=== PATIENT | female | born 2000 | race Caucasian/White ===

== ENCOUNTER 2024-10-20 10:36 | Outpatient (OUT) | payer OTHER, SELFPAY ==
--- OUTSIDE RECORDS SUMMARY | 2024-10-08 15:00 | XMS_ITS | Encounter Summary ---
Author Organization [employer] Sys tem Address [facility] [id number] [address] [place] [address] Care Team Providers Care Electronic Console Display Operator Name Role Phone Emily Martinez APRN-DIVISION LEADER Primary Care Provide r Reason for Visit * Reason Comments Routine Visit +fm, no cramping bleeding or fluid leakingwould like cervical check today Encounter Details Date Type Department Care Team (Late st Contact Info) Description 10/08/2024 3:00 PM EDT Routine [facility] [address] [facility] [facility] [address] [place] [address] Pati Ward MD [address] [facility], [facility] [address] [place] [address] GA: 39w1d Social History Tobacco Use Types Packs/Day Years Used Date Smoking Tobacco: Never Smokeless Tobacco: Never Alcohol Use Standard Drinks/Week Comments Not Currently 0 (1 standard drink = 0.6 oz pur e alcohol) Social Connection and Isolat ion Panel [NHANES] Answer Date Recorded In a typical week, how many times do you talk on the phone with family, friends, or neighbors? More than three times a week 01/28/2021 How often do you get togethe r with friends or relatives? More than three times a week 01/28/2021 How often do you attend chur ch or catholic services? More than 4 times per year 01/28/2021 Do you belong to any clubs o r organizations such as jehovah's witness groups, unions, fraternal or athletic groups, or school groups? Yes 01/28/2021 How often do you attend meet ings of the clubs or organizations you belong to? 1 to 4 times per year 01/28/2021 Are you , , di vorced, , never , or living with a partner? Never 01/28/2021 AUDIT-C Answer Date Recorded Q1: How often do you have a drink containing alc ohol? 2-4 times a month 01/28/2021 Q2: How many drinks containi ng alcohol do you have on a typical day when you are drinking? 3 or 4 01/28/2021 Q3: How often do you have si x or more drinks on one occasion? Never 01/28/2021 Overall Financial Resource Strain (CARDIA) Answe r Date Recorded How hard is it for you to pa y for the very basics like food, housing, medical care, and heating? Not hard at all 03/05/2024 PHQ-2 Answer Date Recorded Total Score 0 03/05/2024 [facility] [place] of Occupat ional Health - Occupational Stress Questionnaire Answer Date Recorded Do you feel stress - tense, restless, nervous, or anxious, or unable to sleep at night because your mind is troubled all the time - these days? Only a little 01/28/2021 Exercise Vital Sign Answer Date Recorde d On average, how many days pe r week do you engage in moderate to strenuous exercise (like a brisk walk)? 2 days 01/28/2021 On average, how many minutes do you engage in exercise at this level? 30 min 01/28/2021 PRAPARE - Transportation Answer Date Re corded In the past 12 months, has l ack of transportation kept you from medical appointments or from getting medications? No 02/02 In the past 12 months, has l ack of transportation kept you from meetings, work, or from getting things needed for daily living? No 02/19/2024 Housing Instability Answer Date Recorde d Are you worried or concerned that in the next two months you may not have stable housing that you own, rent or stay in as a part of a household? No 03/05/2024 Childcare Answer Date Recorded Do problems getting child ca re make it difficult for you to work or study? No 03/05/2024 Employment Answer Date Recorded Do you need help finding a [facility] career center and/or a training program? No 01/28/2021 Hunger Screening Answer Date Recorded Within the past 12 months we worried whether our food would run out before we got money to buy more. Never True 03/08/2024 Within the past 12 months th e food we bought just didn't last and we didn't have money to get more. Never True 03/08/2024 Purpose - Life Answer Date Recorded I have a purpose and direction in my life. Agree 01/28/2021 Education Answer Date Recorded What is the highest level of school you have completed or the highest degree you have received? Some college, no degree 01/28/2021 Comments Yes Sex and Gender Information Value Date Recorded Sex Assigned at Not on file Legal Sex Female 11:56 AM EDT Gender Identity Not on file Sexual Orientation Not on file documented as of this encounter Last Filed Vital Signs Vital Sign Reading Time Taken Comments Blood Pressure 124/84 10/08/2024 3:08 PM EDT Pulse - - Temperature - - Respiratory Rate - - Oxygen Saturation - - Inhaled Oxygen Concentration - - Weight 69.6 kg (153 lb 6.4 oz) 10/08/2024 3:08 P M EDT Height - - Body Mass Index 26.74 03/02/2024 1:24 PM EDT documented in this encounter Progress Notes * Pati Ward MD - 10/08/2024 3:00 PM EDT NEIL 39w1d Good movement. No bleeding or leaking. Irregular contractions. Labor precautions given. Fetalmovement index stressed. Delivery planning: Wants IOL 10/15 if not delivered F/u 1 week - Pati Ward MD 10/08/24 3:36 PM documented in this encounter Plan of Treatment Upcoming Encounters Date Type Department Care Team (Late st Contact Info) Description 11/16/2024 1:30 PM EDT Office Visit [facility] [address] [place] [address] Emily Martinez APRN-CNP [address] [place] [address] 11/29/2024 10:15 AM EDT Visit [facility] [address] [facility] [address] [place] [address] Pati Ward MD [address] [facility], [place] [address] [place] [address] documented as of this encounter Visit Diagnoses Diagnosis Supervision of normal first , antepartum- Primary documented in this encounter Additional Health Concerns Assessment Noted Time PHQ-9 Depression Total Score: 0 03/05/20 24 1:19 PM EDT A Body Mass Index follow-up plan has been documented for the patient 04/03/2023 2:36 PM EST documented as of this encounter Care Teams Electronic Console Display Operator Relationship Specialty Start Date End Date Emily Martinez APRN-CNP [address] [place] [address] PCP - General Family Medicine 08/28/18 documented as of this encounter
--- OUTSIDE RECORDS SUMMARY | 2024-10-12 12:15 | XMS_ITS | Encounter Summary ---
Author Organization [employer] Address [facility] [id number] [address] [place] [address] Care Team Providers Care Car Designer Name Role Phone Emily Martinez [employer] Primary Care Provide r Reason for Visit * Reason Comments Routine Visit +fm, no cramping bleeding or fluid leakingwould like cervical check today Encounter Details Date Type Department Care Team (Late st Contact Info) Description 10/12/2024 12:15 PM EDT Routine [facility] [address] [facility] [address] [place] [address] Pati Ward MD [address] [facility], [facility] [address] [place] [address] GA: 39w5d Social History Tobacco Use Types Packs/Day Years [...] often do you attend chur ch or faith services? More than 4 times per year 01/28/2021 Do you belong to any clubs o r organizations such as yazidism groups, unions, fraternal or athletic groups, or [...] Answer Date Recorded Total Score 0 03/05/2024 [facility] [place] of Occupat ional Health - Occupational Stress [...] Recorded Do you need help finding a [facility] career center and/or a training program? No [...] Sign Reading Time Taken Comments Blood Pressure 120/83 10/12/2024 12:27 PM EDT Pulse - - Temperature - - Respiratory Rate - - Oxygen Saturation - - Inhaled Oxygen Concentration - - Weight 70.1 kg (154 lb 8 oz) 10/12/2024 12:27 PM EDT Height - - Body Mass Index 26.94 03/02/2024 1:24 PM EDT documented in this encounter Patient Instructions * Attachments The following attachments cannot be sent through Care Everywhere. * How to tell when labor starts ([place]) * Labor and childbirth ([place]) * Labor induction ([place]) * Your baby's movement before ([place]) documented in this encounter Progress Notes * Pati Ward MD - 10/12/2024 12:15 PM EDT NEIL 39w5d Good movement. No bleeding or leaking. Irregular contractions. Labor precautions given. Fetalmovement index stressed. SVE 1-2/70/-3/posterior/medium. Delivery planning: wants IOL 10/15 - Pati Ward MD 10/12/24 12:59 PM documented in this encounter Plan of Treatment Upcoming Encounters Date Type Department Care Team (Late st Contact Info) Description 11/16/2024 1:30 PM EDT Office Visit [facility] [address] [place] [address] Emily Martinez APRN-CNP [address] [facility] [place] [address] 11/29/2024 10:15 AM EDT Visit [facility] [address] [facility] [address] [place] [address] Pati Ward MD [address] [facility] [address] [place] [address] documented as of this encounter Visit Diagnoses Diagnosis Supervision of normal first , antepartum- Primary documented in this encounter Additional Health Concerns Assessment Noted Time PHQ-9 Depression Total Score: 0 03/05/20 24 1:19 PM EDT A Body Mass Index follow-up plan has been documented for the patient 04/03/2023 2:36 PM EST documented as of this encounter Care Teams Car Designer Relationship Specialty Start Date End Date Emily Martinez APRN-CNP [address] [facility] [place] [address] PCP - General Family Medicine 08/28/18 documented as of this encounter
--- OUTSIDE RECORDS SUMMARY | 2024-10-18 04:37 | XMS_ITS | Encounter Summary ---
Author Organization [employer] [facility] tem Address [id number] [address] [place] [address] Care Team Providers Care Accounting Lecturer Name Role Phone Emily Martinez APRN-[facility] Primary Care Provide r Reason for Referral * Misc (Routine) - Pending Review Specialty Diagnoses / Procedures Referred By Contac t Referred To Contact Procedures Discharge Follow-Up Olesya Childs MD [address] [address] Phone: tel: fax: Referral ID Status Reason Start Date Expiration Date V isits Requested Visits Authorized [id number] Pending Review 10/18/2024 10/18/2025 1 1 Reason for Visit * Reason Comments Contractions * Auth/Cert (Routine) Specialty Diagnoses / Procedures Referred By Contac t Referred To Contact Diagnoses Uterine contractions Normal labor Chelsi Farmer MD [address] [place] [address], [address] [place] [address] Phone: tel: fax: Referral ID Status Reason Start Date Expiration Date Visits Re quested Visits Authorized [id number] 1 1 Encounter Details Date Type Department Care Team (Latest Contact Info) Description 10/18/2024 4:37 AM EDT - 10/19/2024 3:30 PM EDT Hospital Encounter [facility] [address] [place] [address] Chelsi Farmer MD [address] [facility], [address] [place] [id number] Discharge Disposition: Home Social History Tobacco Use Types Packs/Day Years [...] often do you attend chur ch or jew services? More than 4 times per year 01/28/2021 Do you belong to any clubs o r organizations such as religious groups, unions, fraternal or athletic groups, or [...] Answer Date Recorded Total Score 0 03/05/2024 [facility] - Occupational Stress [...] Recorded Do you need help finding a [facility] career center and/or a training program? No 01/28/2021 Hunger Screening Answer Date Recorded Within the past 12 months we worried whether our food would run out before we got money to buy more. Never True 10/19/2024 Within the past 12 months th e food we bought just didn't last and we didn't have money to get more. Never True 10/19/2024 Purpose - Life Answer Date Recorded I have a purpose and direction in my life. Agree 01/28/2021 Education Answer Date Recorded What is the highest level of school you have completed or the highest degree you have received? Some college, no degree 01/28/2021 Comments No Sex and Gender Information Value Date Recorded Sex Assigned at Not on file Legal Sex Female 11:56 AM EDT Gender Identity Not on file Sexual Orientation Not on file documented as of this encounter Last Filed Vital Signs Vital Sign Reading Time Taken Comments Blood Pressure 116/73 10/19/2024 2:21 PM EDT Pulse 72 10/19/2024 2:21 PM EDT Temperature 36.4 C (97.5 F) 10/19/2024 2:21 PM EDT Respiratory Rate 18 10/19/2024 2:21 PM EDT Oxygen Saturation 99% 10/18/2024 1:45 PM EDT Inhaled Oxygen Concentration - - Weight 69.9 kg (154 lb) 10/18/2024 4:48 AM EDT Height 162.6 cm (5' 4 ) 10/18/2024 4:48 AM EDT Body Mass Index 26.43 10/18/2024 4:48 AM EDT documented in this encounter Functional Status documented as of this encounter Discharge Summaries * Tatiana Nieves, DO - 10/19/2024 7:10 AM EDT Discharge Summary Reason for admission: Spontaneous labor Principal diagnosis: Intrauterine at 40w4d Secondary diagnosis: RH negative Procedures: Hospital course: Rc Rodriguez is a 24 y.o. who presented at 40w4d with Spontaneous labor. The patient received her epidural. Amniotomy performed. The patient progressed to complete and began pushing. She delivered a viable female fetus weighing 3080 grams with apgars of 8 and 9 at one and five minutes respectively via . She underwent an uncomplicated course and was discharged home on day number 1 when she was tolerating a regular diet, ambulating without difficulty, passing flatus, voiding spontaneously, and pain was controlled using oral pain medications. Laboratory Results: Lab Results Component Value Date WBC 6.3 07/08/2024 HGB 13.4 10/18/2024 HCT 40.0 10/18/2024 MCV 96 07/08/2024 PLT 199 07/08/2024 Lab Results Component Value Date GLU 79 03/14/2023 CALCIUM 9.1 03/14/2023 K 4.0 03/14/2023 CO2 25 03/14/2023 BUN 18 03/14/2023 CREATININE 0.71 03/14/2023 Care treatment provided: 1. Management of labour. 2. Pain management. 3. Stool softeners. Prescriptions given at discharge: Motrin PO 800mg q8h PRN cramping or mild pain, Tylenol PO 1000mg q8h PRN, Colace 100mg BID PRN constipation, and Tylenol 1000mg q8h prn Condition of patient at discharge: Stable, good. Special instructions to the patient family: 1. Pelvic rest for 6 weeks. 2. Please call if fever greater than 100.4, chills, malodorous vaginal discharge, or other signs ofinfection. 3. Please call if chest pain, shortness of breath, asymmetrical leg swelling or calf tenderness develops. 4. Please call if bleeding through more than 1 pad per hour. Recommendations for follow-up care: 1. Please follow up with primary OBGYN in 6 weeks for routine visit. Disposition: home Tatiana Nieves DO [employer] Resident, PGY-1 Cosigned by Ana Garcia MD at 10/19/2024 10:51 AM EDT Associated attestation - Ana Garcia MD - 10/19/2024 10:51 AM EDT I, personally, saw the patient and performed the critical and sorto portions of the history and exam.I reviewed the resident's note. I discussed the case management with the resident and agree with the findings and plan as documented by the resident documented in this encounter Discharge Instructions * Discharge Instructions* Alisha Flynn RN - 10/19/2024 11:07 AM EDT Discharge Instructions Vaginal Bleeding Vaginal drainage, lochia , will last 2-3 weeks after your baby was born Use the varinder bottle filled with warm water each time you use the bathroom, pat dry. Continue this until your drainage stops. Always wipe from front to back after you urinate or have a bowel movement Change your sanitary pad every 2-4 hours Notify your doctor/CNM if you experience any of the following: Clots larger than a plum If you are saturating a varinder pad greater than one pad an hour Any foul smelling vaginal drainage Abdominal Cramping Cramping gets stronger with each baby. You may try a heating pad Bathing/Showering Take a shower each day unless you were told not to To help with episiotomy discomfort you may sit in a clean tub of warm water Stitches in your perineum will dissolve over 6 weeks, for comfort you may: Use a sitz bath Varinder bottle Dermoplast (use each time after varinder care) Tucks (use each time after varinder care) Tucks and Dermoplast spray may also help with hemorrhoid discomfort (use each time after varinder care) Sexual [place] No tampons, douching, or sexual intercourse until after you see your doctor You may need to use a water-soluble lubricant such as KY Jelly for dryness Talk to your doctor/CNM regarding control and which method would be best for you Talk to your doctor/CNM regarding the use of a long acting, but reversible, control method It is recommended to space pregnancies apart by at least 18 months, this is for the safety of future outcomes Notify your doctor if you have: Any vaginal burning or itching Any burning or pain when urinating, or inability to urinate A temperature greater than 100.4 degrees Fahrenheit or severe chills Pain in calf or leg Nausea or vomiting, dizziness or fainting If you have not had a bowel movement in 5 days Diet: Drink 8-12 glasses of water each day Make sure you eat a balanced diet, especially high in fiber (whole grains, raw vegetables, etc.) If drink 8 oz. of liquid every time you nurse your baby Continue to take your vitamins as prescribed by your doctor Abdominal Incision / Tubal Ligation Care: Wash your incision with soap and water and be sure to rinse and dry well If you had antoine they will be removed by your doctor/CNM If you had sutures they will dissolve on their own For ease of movement hold a pillow against the incision: When you get up from a lying or sitting position When you laugh or cough Notify your doctor/CNM for any of the following: Redness Drainage Open areas around your incision Breast Care: To help with discomfort: Feed your baby frequently to avoid engorgement Apply warm compresses to breast before feeding Apply cold compresses to breast after feeding Wear a supportive nursing bra 24 hours a day Do not put soap on your nipples Allow nipples to air dry after feeding Bottle feeding: To help with discomfort: Use cold compresses Wear a tight fitting bra 24 hours a day Notify your doctor/CNM: For swelling, redness, or tenderness in one area of your breast Blues / Depression: Blues : Usually occurs within 3-5 days after delivery Normally goes away on its own Depression: Can also occur within days of delivery, or within a year Warning Signs: Increased crying for no obvious reason Lack of patience Being irritable Being restless Not being able to sleep Not wanting to eat Anxiety Notify your doctor/CNM: If you experience any of the warning signs If you are having any violent thoughts If you are having thoughts of harming yourself or your baby Sibling / Family Adjustment: Each family member will take different amounts of time to adjust to the new baby Be patient and offer lots of love and comfort Offer some individual attention to other children Exercise / Activity: Get plenty of rest Take catnaps while baby is sleeping during the day No heavy cleaning or other housework for the first couple of weeks Lift nothing heavier than your baby for 2 weeks No driving for one week Do not drive while taking narcotics You may start walking and stretching in 2 weeks No strenuous exercises like jogging, aerobics, etc. until after you have seen your doctor/CNM You may start Kegel exercises now * Attachments The following attachments cannot be sent through Care Everywhere. * Normal Bleeding After Having a Baby (Haitian) * Taking Care of Yourself After You Have a Baby (Haitian) documented in this encounter Medications at Time of Discharge acetaminophen (TYLENOL EXTRA STRENGTH) 500 mg tablet Take 2 tablets (1,000 mg total) by mouth every 8 (eight) hours as needed for pain. 30 tablet 10/18/2024 docusate sodium (COLACE) 100 mg capsule Take 1 capsule (100 mg total) by mouth in the morning and 1 capsule (100 mg total) before bedtime. 10 capsule 10/19/2024 EPINEPHrine (EPIPEN 2-SHERWIN) 0.3 mg/0.3 mL auto-injectorInd ications:Allergi c reaction to bee sting Inject 0.3 mL (0.3 mg total) into the appropriate muscle as needed (when stung by bee). 4 each 1 08/28/2023 ibuprofen (MOTRIN) 800 mg tablet Take 1 tablet (800 mg total) by mouth every 8 (eight) hours as needed (cramping). 30 tablet 10/18/2024 omeprazole (PriLOSEC) 20 mg capsule Take 1 capsule (20 mg total) by mouth as needed. vit,[id number]- folic 29 mg iron- 1 mg tablet Take 1 tablet by mouth in the morning. 90 tablet 11 01/30/2024 documented as of this encounter Progress Notes * Tatiana Nieves, DO - 10/19/2024 6:08 AM EDT OBGYN Daily Progress Note Subjective [place] Yuli Rodriguez is a 24 y.o. PPD#1 at 40w4d. Patient reports doing well. Pain is controlled with oral medications. Reports cramping. Lochia minimal with small clots. She is voiding.She has had flatus, and has not had a BM. She is ambulating without difficulty. She is . Baby doing well. Denies fever, chills, nausea, vomiting, headache, changes in vision, or RUQ pain. Objective: Temp: [36.5 ??C (97.7 ??F)-36.8 ??C (98.2 ??F)] 36.7 ??C (98.1 ??F) Pulse: [60-165] 70 Resp: [15-18] 18 Blood Pressure : (88-140)/(44-88) 120/77 SpO2: [99 %-100 %] 99 % O2 Device: None (Room air) Vitals: 10/18/24 1345 10/18/24 1500 10/18/24201910/19/24 0159 BP: (!) 99/44 136/76 117/81 120/77 Pulse: 63 69 78 70 Resp: 16 18 18 18 Temp: 36.5 ??C (97.7 ??F) 36.6 ??C (97.9 ??F) 36.7 ??C (98.1 ??F) TempSrc: Oral Oral Oral SpO2: 99% Weight: Height: Rubella: Lab Results Component Value Date RUBELLAIMMU 1.5 03/24/2024 Physical Exam: General: alert, well appearing, in no apparent distress Abd: soft and nontender Ext: no redness or tenderness in the calves or thighs, no edema Assessment/Plan: Rc Rodriguez is a 24 y.o. PPD#1 at 40w4d. Sustained small first degree perineal laceration, repaired. Overall doing well. Routine PP care: Encourage ambulation and incentive spirometry. O negative, Rubella immune: Yes, sp Tdap: Yes - Baby screened Rh negative; no Rhogam administered Hgb 13.2 10/18: Continue vitamin PP contraception: plans to follow up with family medicine doctor at appointment this week and primary [facility] for counseling at appointment. Anticipate home today. Shannon Phillips, MS4 Resident Attestation I have seen and evaluated the patient, and have also reviewed the documentation above. I have repeated and performed the sorto portions of the physical exam and concur with the student's findings. I agree with the plan as noted above with any changes made as necessary. Tatiana Nieves DO [employer] Resident PGY-1 10/19/24 7:10 AM Cosigned by Ana Garcia MD at 10/19/2024 10:51 AM EDT Associated attestation - Ana Garcia MD - 10/19/2024 10:51 AM EDT I, personally, saw the patient and performed the critical and sorto portions of the history and exam.I reviewed the resident's note. I discussed the case management with the resident and agree with the findings and plan as documented by the resident documented in this encounter H&P Notes * ARDEN Hutton - 10/18/2024 5:01 AM EDT Images from the original note were not included. [facility] Obstetrics Emergency Department Chief Complaint: Chief Complaint Patient presents with Contractions SUBJECTIVE Care by: Dr Ward/ NELSON HPI: 23 y.o. at 40w4d presents to the OB Emergency Center with complaints of labor and possible SROM. Pt states she woke with contractions near 2am & they are becoming progressively stronger and closer. Near 3a she felt watery discharge running down her leg & she continues to experience this She reports positive movement. She denies vaginal bleeding. Her history is complicated by: - Rh neg: chromosome screen indicates fetus Rh negative, no rhogam given Review of Systems: General: see HPI Head: No headache or visual changes Cardio: Denies chest pain. Respiratory: Denies shortness of breath GI: No nausea/vomiting : Denies urinary symptoms. Allergies Allergies Allergen Reactions Bee Venom Protein (Honey Bee) Anaphylaxis Hornet Venom Anaphylaxis Venom-Wasp Anaphylaxis Penicillins Nausea Home Medications Medications Prior to Admission Medication Sig Dispense Refill Last Dose/Taking omeprazole (PriLOSEC) 20 mg capsule Take 1 capsule (20 mg total) by mouth as needed. 10/17/2024 vit,[id number] 29 mg iron- 1 mg tablet Take 1 tablet by mouth in the morning. 90 tablet 11 10/17/2024 EPINEPHrine (EPIPEN 2-SHERWIN) 0.3 mg/0.3 mL auto-injector Inject 0.3 mL (0.3 mg total) into the appropriate muscle as needed (when stung by bee). 4 each 1 OB History OB History Para Term AB Living 1 0 0 0 0 0 SAB IAB Ectopic Multiple Live Births 0 0 0 0 0 # Outcome Date GA Lbr Rene/2nd Weight Sex Type Anes PTL Lv 1 Current Travel History Travel Screening Question Response Have you been in contact with someone who was sick? No / Unsure Do you have any of the following new or worsening symptoms? None of these Have you traveled internationally or domestically in the last month? 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 Depression 08/28/2018 situational no issues since [facility] GERD (gastroesophageal reflux disease) Surgical History Past Surgical History: Procedure Laterality Date WISDOM TOOTH EXTRACTION Family History Family History Problem Relation Age of Onset Pulmonary fibrosis Paternal Grandfather Hypothyroidism Paternal Grandfather No Known Problems Paternal Grandmother Diabetes Maternal Grandmother DM I Pulmonary fibrosis Maternal Grandmother Diabetes Maternal Grandfather No Known Problems Father Diabetes Mother DM I Polycystic ovary syndrome Mother Miscarriages / Stillbirths Mother SAB x2 Polycystic ovary syndrome Sister Diabetes Maternal Aunt Social History Social History Tobacco Use Smoking status: Never Smokeless tobacco: Never Vaping Use Vaping status: Never Used Substance Use Topics Alcohol use: Not Currently Comment: Drug use: Never OBJECTIVE Vital signs in last 24 hours: Vitals: 10/18/24 0446 BP: 114/79 Pulse: 99 Resp: 18 Temp: 36.4 ??C (97.5 ??F) RECENT LABS IN LAST 24 HOURS No results found for this or any previous visit (from the past 24 hours). Lab Review ABO/Rh: Lab Results Component Value Date ABOINTEP O 03/24/2024 ABOINTEP O 03/24/2024 RHINTEP Negative 03/24/2024 RHINTEP Negative 03/24/2024 Group B Strep: Lab Results Component Value Date CULTURE 09/16/2024 NEGATIVE FOR GROUP B STREPTOCOCCUS BY NUCLEIC ACID AMPLIFICATION Rubella: Lab Results Component Value Date RUBELLAIMMU 1.5 03/24/2024 Hepatitis B Surface Antigen: Lab Results Component Value Date HEPBSAG Negative 03/24/2024 HIV: Lab Results Component Value Date HIV4 Non-Reactive 03/24/2024 RPR (VDRL): Lab Results Component Value Date SYPHILISTOT <0.2 07/08/2024 One hour GTT: Lab Results Component Value Date LABGLUC 139 07/08/2024 Three Hour GTT: Lab Results Component Value Date GLUF 77 07/10/2024 DVDYAHT8OY 128 07/10/2024 CBLQIYW1IC 78 07/10/2024 BMNDHXG8OM 60 (L) 07/10/2024 Physical Exam Consitutional: well-appearing; NAD Psychological: Alert and oriented to person, place and time Neurological: No deficits Head/Neck: No masses/adenopathy, non-tender Skin: Normal temp and turgor, dry, intact Respiratory: Respirations even and non labored, lungs CTA Cardiovascular: Regular rate and rhythm Abdomen: Soft, gravid, non-tender to palpation Back: No CVA tenderness, no back pain Musculoskeletal: ROM x 4, normal gait Extremities: No LE edema, non-tender SSE: no pooling of fluid seen, Nitrizine test is negative PELVIC EXAM: Presentation: Cervix: Dilation: Dilation: 5.5 Effacement: Effacement (%): 100 Station: Station: -1 Position: FHR: 130 baseline, moderate variability, positive accels, Absent decels Uterine Activity: regular, every 3-5 minutes per toco ASSESSMENT & PLAN 1. 23 y.o., at 40w4d - Cat 1 FHT - Reactive NST greater than 20 minutes 2. No leakage of amniotic fluid - no pooling - negative ntrazine - BBOW visualized 3. Labor - SVE 5.5/ 100/ -1 soft vertex BBOW Plan - Discussed with Dr. Farmer- pt presenting with contractions, SVE of 5.5/ 100/-1 vertex, cat 1 tracing - Admit, routine labor orders - GBS neg - plans epidural - gender surprise. ARDEN HUTTON APRN-CNM 10/18/24 0531 documented in this encounter Nursing Notes * Alisha Flynn RN - 10/19/2024 3:20 PM EDT Patient discharged to home with infant. * Malissa Rodarte RN - 10/19/2024 2:42 PM EDT AVS printed, discussed, signed, and copy given to patient. Patient verbalizes understanding of discharge instructions. Patient has follow up appointment November 29, 2024 @ 10:15 AM. No further questionsat this time. * Alisha Flynn RN - 10/18/2024 3:15 PM EDT Patient admitted to unit room 427 with . Call light and baby emergency light placed within reach. Contents of yellow folder discussed. Encouraged to latch infant q2-3h. documented in this encounter Miscellaneous Notes * Plan of Care - Pao Jay RN - 10/19/2024 11:34 AM EDT Problem: Goal: Effective breast feeding established Description: Mother is able to demonstrate proper positioning and alignment to promote adequate latching and . INTERVENTIONS 1. Teach breast feeding/assist with breast feeding as applicable 2. Provide pumping equipment/supplies in room 3. Encourage rooming in and breast feeding on demand 4. Encourage oral fluids 5. Encourage skin to skin contact - Breast feeding Outcome: Progressing Note: Evaluation of progress towards goal: with comfortable latch Additional Comments: * Note - Pao Jay RN - 10/19/2024 10:20 AM EDT Congratulations on your New Baby handout given with warmline contact information, outpatient office visits and video resources. Baby News Booklet referenced with attention to chapter on . Discussed typical feeding patterns, frequency of feeds and feeding cues. Goal is to feed 8-12 times in 24 hours and skin to skin encouraged. Advised to keep track of baby's wet and dirtydiapers. How to tell baby is getting enough handout reviewed. Hand expression reviewed. Can spoon feed hand expressed colostrum if baby has a feed that she is too sleepy for and did not feed well. Verbalized understanding. Patient reports that baby is improving with . Reports yesterday baby was sleepy but this morning has started feeding better. Reports the latch feels comfortable and notes hearing swallows. Encouraged pt to continue offering breast every 1-3 hours or whenever showing feeding cues. Baby should feed at least 8-12x/24 hrs for at least 10-15 minutes with active suckling and swallowing. Advised pt to continue tracking feedings as well as wet/dirty diapers noting stool color change to ensure adequate output. Planning for discharge home after 24 hrs. Discussed feeding plan if baby does not continue doing well at the breast, is not having an appropriate amount of wet/dirty diapers or losing too much weight. Reviewed feeding plan with the pt. Discussed that it is common for babies to need time to learn the skill of . Encouraged to follow the feeding plan below to ensure baby is getting enough milk and stimulate/protect mother's milk supply. Written feeding plan provided. Patient verbally understands teaching. If your baby is greater than 24 hours old and is not going well: Offer the breast every 1-3 hours. If baby does not take a full feed at breast, move to step 2. Supplement baby with pumped milk or formula using paced bottle feeding (see below for supplement amount) Pump for 15-20 minutes with double electric breast pump Baby's Age (Hours) Average Intake (Per Feed) <24 2-10 mls 24-48 5-15 mls 48-72 15-30 mls 72-96 30-60 mls Patient educated that this feeding plan is meant to be short term: it is a bridge to protect milk supply and feed the baby while they get bigger, stronger, and more effective at . Encouraged to make an outpatient appointment after discharge with by calling [phone]. Pt does have a Spectra breast pump for home. Measured for flange size. Recommend 22mm flange size to start. Flange fit should be comfortable. Flange Fit A flange fits correctly when: your nipple is centered in the tube no parts of your nipple rub against the sides little or no areola is pulled in when the pump is turned on On the other hand, a flange is not fitting properly when: you experience nipple pain during or after the pumping session you notice your nipple is becoming discolored, chapped, or otherwise injured In addition to breast and nipple pain, using the wrong sized pump flange can negatively impact the amount of milk you are able to get out of your breast. A flange that fits too tightly will cause the breast to be constricted in ways that can lead to clogged/blogged milk ducts. (When ducts are clogged, they don???t release milk and new milk isn???t formed as quickly.) On the other hand, a flange that fits too loosely won???t provide adequate suction. This can also lead to milk being left in the breast and lower milk production in the future. Pain and infection candevelop from this as well. All questions answered at this time. Encouraged pt to reach out to with any questions or concerns. DEEP LATCH SUGGESTIONS: -position baby at level of the breast, use lots of pillows for support -position baby belly to belly , with ear in line with shoulder and hip -use one hand to support baby at the shoulders to help with head control and keep airway straight and open -point nipple toward nose/roof of baby's mouth -wait for baby to open wide, bring on chin-first for an asymmetrical latch : scoop as much of bottom breast tissue/areola into baby's mouth first, then bring baby up and over to complete a deep latch *if latch becomes uncomfortable or appears shallow, break seal with finger to take baby off, try tolatch again * Plan of Care - Alisha Flynn RN - 10/19/2024 8:19 AM EDT Problem: Pain Goal: Patient goal is pain score less than 4, able to rest, and participant in treatment plan as appropriate Description: INTERVENTIONS: 1. Encourage patient or legal inside technical sales representative to report early pain and ask for pain medicine when needed 2. Assess pain using appropriate pain scale and include the scale used when documenting 3. Administer analgesics based on type and severity of pain and evaluate response within appropriate time frame 4. Implement non-pharmacological measures as appropriate and evaluate response 5. Consider cultural and social influences on pain and pain management 6. Notify LIP if interventions ineffective or patient reports new pain 7. Monitor vital signs including pulse ox, end-tidal CO2 based on pain intervention 8. Reassess pain per policy 9. Teach patient or legal inside technical sales representative interventions for comforting Outcome: Progressing Note: Evaluation of progress towards goal: Patient displays adequate comfort level. PO pain medication given as needed per orders. Problem: Safety Goal: Patient will be injury free during hospitalization Description: INTERVENTIONS: 1. Assess patient's risk for falls and implement fall prevention plan of care per policy 2. Provide and maintain a safe environment 3. Proper use of double Identifiers 4. Medication administration using the 5 rights 5. Hand hygiene 6. Specimens are labeled at the bedside 7. Instruct patient/ patient inside technical sales representative about use of safety devices 8. Include patient/ patient inside technical sales representative in decisions related to safety Outcome: Progressing Note: Evaluation of progress towards goal: Patient has remained free from injury and falls. Call light within reach. Problem: Infection Goal: Absence of infection during hospitalization Description: INTERVENTIONS 1. Assess and monitor for signs and symptoms of infection. 2. Monitor lab/diagnostic results. 3. Monitor all insertion sites i.e., indwelling lines, tubes and drains. 4. Monitor endotracheal (as able) and nasal secretions for changes in amount and color. 5. Administer medications as ordered. 6. Instruct and encourage patient and family to use good hand hygiene technique. 7. Identify and instruct patient/patient inside technical sales representative in use of appropriate isolation precautionsfor identified infection/symptoms. 8. Provide and discuss with patient/patient inside technical sales representative on educational MDRO sheet. 9. Encourage and monitor nutritional status daily and consult global commodity manager if indicated. 10. Implement neutropenic guidelines as needed. Outcome: Progressing Note: Evaluation of progress towards goal: no s/s of infection present Problem: Knowledge Deficit Goal: Patient/patient inside technical sales representative demonstrates understanding of disease process, treatment plan,medications, and discharge instructions Description: INTERVENTIONS 1. Complete learning assessment and assess knowledge base 2. Provide teaching at level of understanding 3. Provide teaching via preferred learning method(s) Outcome: Progressing Note: Evaluation of progress towards goal: Patient demonstrates understanding of routine varinder and care. Will provide education as needed Problem: Discharge Planning Goal: Discharge to post-acute care, other facility, or home with appropriate resources Description: Patient's goal is: INTERVENTIONS 1. Conduct assessment to determine patient/family and health care team treatment goals, and need for post-acute services based on payer coverage, community resources, and patient preferences, and barriers to discharge 2. Coordinate with Social work, Care Navigation, and Utilization Review to arrange appropriate level of services according to patient's needs based on patient preference and payer coverage in collaboration with the physician and health care team 3. Address psychosocial, clinical, and financial barriers to discharge as identified in assessment in conjunction with the patient/family and health care team 4. Consult appropriate ancillary services (i.e.. PT/OT/ST, etc) as needed 5. Communicate with and update the patient/family, physician, and health care team regarding progress on the discharge plan 6. Identify discharge learning needs (meds, wound care, etc). 7. Arrange for needed discharge transportation as appropriate Outcome: Progressing Note: Evaluation of progress towards goal: Discharge needs are being identified. Problem: Moderate - High Risk Fall Score Description: Glover Fall Score of =/> 25 or indicated by [facility] Assessment Goal: Patient should be free from fall Description: Interventions: 1. [place] to environment 2. Hourly rounds addressing the 4 P's (Pain, Positioning, Possessions, Potty) 3. Clear area of hazards (spills, clutter, electrical cords, unnecessary equipment) 4. Place equipment (bed & TV controls, call light, phone, urinal) within reach 5. Encourage patient to wear glasses and hearing aides as appropriate 6. Maintain bed in lowest position 7. Lock wheels on bed/wheelchair 8. Provide adequate lighting, including night light 9. Assess need for additional bedding, food/fluids, pain med's prior to sleep/routinely 10. Provide gripper slippers or personal non-skid footwear 11. Teach patient and patient inside technical sales representative to maintain environment for safety and engage in all aspects of fall prevention program 12. Remind patient to call for help before getting out of bed 13. Initiate bed/chair/exit alarms supportive devices as appropriate, (chair wedge, no-skid floor mat, raised edge mattress, hip protectors) 14. Locate patient bed assignment for optimal visualization 15. Evaluate and identify Safe Patient Handling Equipment needs 16. Provide supervision when out of bed or chair 17. Utilize gait belt as needed to assist with ambulation 18. Place adaptive equipment (cane, walker) within reach 19. Request patient inside technical sales representative bring adaptive equipment/mobility aids from home or obtain and provide as needed 20. Consult pharmacy regarding effects of med's affecting mobility, cognition, and alternatives 21. Obtain physician order for PT if risk factors associated with mobility are present 22. Obtain physician order for OT as appropriate 23. Utilize diversional activities 24. Educate patient and patient inside technical sales representative how to maintain a safe environment during visitationtimes (notify nurse prior to leaving bedside) 25. Consider appropriateness of medical or non-biomedical instrument technician 26. Set up voiding schedule as appropriate (every 2 hours) Outcome: Progressing Note: Evaluation of progress towards goal: safety maintained Problem: Vaginal Delivery - Recovery and Goal: Empties bladder Description: Assess bladder and bladder function. INTERVENTION 1. Encourage patient to void Outcome: Progressing Note: Evaluation of progress towards goal: void checks completed Goal: Patient vitals and physical assessment findings are stable following delivery Description: Edema will be absent or minimal INTERVENTIONS 1. Vital signs - vaginal delivery - recovery & 2. Assess fundus - vaginal delivery - recovery and 3. Do lochia check - vaginal delivery - recovery and Outcome: Progressing Note: Evaluation of progress towards goal: vitals and assessment wnl at this time Goal: Perineum intact without discharge or hematoma Description: INTERVENTIONS 1. Ice to perineum 2. Provide pericare 3. Sitz bath PRN Outcome: Progressing Note: Evaluation of progress towards goal: perineum CDI Goal: Ambulates independently Description: INTERVENTION 1. Ambulate Outcome: Progressing Note: Evaluation of progress towards goal: ambulates without difficulty Problem: Goal: Breasts are soft with nipple integrity intact Description: INTERVENTIONS 1. Do breast/nipple assessment 2. Ensure proper latch 3. Assess and manage engorgement Outcome: Progressing Note: Evaluation of progress towards goal: nipple integrity wnl Goal: Effective breast feeding established Description: Mother is able to demonstrate proper infant positioning and alignment to promote adequate latching and . INTERVENTIONS 1. Teach breast feeding/assist with breast feeding as applicable 2. Provide pumping equipment/supplies in room 3. Encourage rooming in and breast feeding on demand 4. Encourage oral fluids 5. Encourage skin to skin contact - Breast feeding Outcome: Progressing Note: Evaluation of progress towards goal: encouraged to latch q2-3h Additional Comments: * Plan of Care - Isabel Mcdonald RN - 10/18/2024 11:25 PM EDT Problem: Pain Goal: Patient goal is pain score less than 4, able to rest, and participant in treatment plan as appropriate Description: INTERVENTIONS: 1. Encourage patient or legal inside technical sales representative to report early pain and ask for pain medicine when needed 2. Assess pain using appropriate pain scale and include the scale used when documenting 3. Administer analgesics based on type and severity of pain and evaluate response within appropriate time frame 4. Implement non-pharmacological measures as appropriate and evaluate response 5. Consider cultural and social influences on pain and pain management 6. Notify LIP if interventions ineffective or patient reports new pain 7. Monitor vital signs including pulse ox, end-tidal CO2 based on pain intervention 8. Reassess pain per policy 9. Teach patient or legal inside technical sales representative interventions for comforting Outcome: Progressing Note: Evaluation of progress towards goal: Patient verbalizes pain maintained with pain medication ordered. Problem: Safety Goal: Patient will be injury free during hospitalization Description: INTERVENTIONS: 1. Assess patient's risk for falls and implement fall prevention plan of care per policy 2. Provide and maintain a safe environment 3. Proper use of double Identifiers 4. Medication administration using the 5 rights 5. Hand hygiene 6. Specimens are labeled at the bedside 7. Instruct patient/ patient inside technical sales representative about use of safety devices 8. Include patient/ patient inside technical sales representative in decisions related to safety Outcome: Progressing Note: Evaluation of progress towards goal: Safety maintained. Problem: Infection Goal: Absence of infection during hospitalization Description: INTERVENTIONS 1. Assess and monitor for signs and symptoms of infection. 2. Monitor lab/diagnostic results. 3. Monitor all insertion sites i.e., indwelling lines, tubes and drains. 4. Monitor endotracheal (as able) and nasal secretions for changes in amount and color. 5. Administer medications as ordered. 6. Instruct and encourage patient and family to use good hand hygiene technique. 7. Identify and instruct patient/patient inside technical sales representative in use of appropriate isolation precautionsfor identified infection/symptoms. 8. Provide and discuss with patient/patient inside technical sales representative on educational MDRO sheet. 9. Encourage and monitor nutritional status daily and consult global commodity manager if indicated. 10. Implement neutropenic guidelines as needed. Outcome: Progressing Note: Evaluation of progress towards goal: No signs/symptoms of infection noted. Please see vitals in flowsheet. Problem: Knowledge Deficit Goal: Patient/patient inside technical sales representative demonstrates understanding of disease process, treatment plan,medications, and discharge instructions Description: INTERVENTIONS 1. Complete learning assessment and assess knowledge base 2. Provide teaching at level of understanding 3. Provide teaching via preferred learning method(s) Outcome: Progressing Note: Evaluation of progress towards goal: Patient voices and demonstrates understanding of self care. Asks appropriate questions as they arise. Problem: Discharge Planning Goal: Discharge to post-acute care, other facility, or home with appropriate resources Description: Patient's goal is: INTERVENTIONS 1. Conduct assessment to determine patient/family and health care team treatment goals, and need for post-acute services based on payer coverage, community resources, and patient preferences, and barriers to discharge 2. Coordinate with Social work, Care Navigation, and Utilization Review to arrange appropriate level of services according to patient's needs based on patient preference and payer coverage in collaboration with the physician and health care team 3. Address psychosocial, clinical, and financial barriers to discharge as identified in assessment in conjunction with the patient/family and health care team 4. Consult appropriate ancillary services (i.e.. PT/OT/ST, etc) as needed 5. Communicate with and update the patient/family, physician, and health care team regarding progress on the discharge plan 6. Identify discharge learning needs (meds, wound care, etc). 7. Arrange for needed discharge transportation as appropriate Outcome: Progressing Note: Evaluation of progress towards goal: Anticipate discharge to home when appropriate. Problem: Moderate - High Risk Fall Score Description: [place] Fall Score of =/> 25 or indicated by [facility] Assessment Goal: Patient should be free from fall Description: Interventions: 1. [place] to environment 2. Hourly rounds addressing the 4 P's (Pain, Positioning, Possessions, Potty) 3. Clear area of hazards (spills, clutter, electrical cords, unnecessary equipment) 4. Place equipment (bed & TV controls, call light, phone, urinal) within reach 5. Encourage patient to wear glasses and hearing aides as appropriate 6. Maintain bed in lowest position 7. Lock wheels on bed/wheelchair 8. Provide adequate lighting, including night light 9. Assess need for additional bedding, food/fluids, pain med's prior to sleep/routinely 10. Provide gripper slippers or personal non-skid footwear 11. Teach patient and patient inside technical sales representative to maintain environment for safety and engage in all aspects of fall prevention program 12. Remind patient to call for help before getting out of bed 13. Initiate bed/chair/exit alarms supportive devices as appropriate, (chair wedge, no-skid floor mat, raised edge mattress, hip protectors) 14. Locate patient bed assignment for optimal visualization 15. Evaluate and identify Safe Patient Handling Equipment needs 16. Provide supervision when out of bed or chair 17. Utilize gait belt as needed to assist with ambulation 18. Place adaptive equipment (cane, walker) within reach 19. Request patient inside technical sales representative bring adaptive equipment/mobility aids from home or obtain and provide as needed 20. Consult pharmacy regarding effects of med's affecting mobility, cognition, and alternatives 21. Obtain physician order for PT if risk factors associated with mobility are present 22. Obtain physician order for OT as appropriate 23. Utilize diversional activities 24. Educate patient and patient inside technical sales representative how to maintain a safe environment during visitationtimes (notify nurse prior to leaving bedside) 25. Consider appropriateness of medical or non-biomedical instrument technician 26. Set up voiding schedule as appropriate (every 2 hours) Outcome: Progressing Note: Evaluation of progress towards goal: pt will remain free from fall, see cares and safety Problem: Vaginal Delivery - Recovery and Goal: Empties bladder Description: Assess bladder and bladder function. INTERVENTION 1. Encourage patient to void Outcome: Progressing Note: Evaluation of progress towards goal: pt is off void checks and empties bladder adequately Goal: Patient vitals and physical assessment findings are stable following delivery Description: Edema will be absent or minimal INTERVENTIONS 1. Vital signs - vaginal delivery - recovery & 2. Assess fundus - vaginal delivery - recovery and 3. Do lochia check - vaginal delivery - recovery and Outcome: Progressing Note: Evaluation of progress towards goal: Vitals are stable and are monitored q6 hours Goal: Perineum intact without discharge or hematoma Description: INTERVENTIONS 1. Ice to perineum 2. Provide pericare 3. Sitz bath PRN Outcome: Progressing Note: Evaluation of progress towards goal: perineum intact without discharge or hematoma Goal: Ambulates independently Description: INTERVENTION 1. Ambulate Outcome: Progressing Note: Evaluation of progress towards goal: mom is up at tee and ambulates independently Problem: Goal: Breasts are soft with nipple integrity intact Description: INTERVENTIONS 1. Do breast/nipple assessment 2. Ensure proper latch 3. Assess and manage engorgement Outcome: Progressing Note: Evaluation of progress towards goal: Patient breasts are soft with nipple integrity maintained. Additional Comments: * Plan of Care - Alisha Flynn RN - 10/18/2024 5:01 PM EDT Problem: Pain Goal: Patient goal is pain score less than 4, able to rest, and participant in treatment plan as appropriate Description: INTERVENTIONS: 1. Encourage patient or legal inside technical sales representative to report early pain and ask for pain medicine when needed 2. Assess pain using appropriate pain scale and include the scale used when documenting 3. Administer analgesics based on type and severity of pain and evaluate response within appropriate time frame 4. Implement non-pharmacological measures as appropriate and evaluate response 5. Consider cultural and social influences on pain and pain management 6. Notify LIP if interventions ineffective or patient reports new pain 7. Monitor vital signs including pulse ox, end-tidal CO2 based on pain intervention 8. Reassess pain per policy 9. Teach patient or legal inside technical sales representative interventions for comforting Outcome: Progressing Note: Evaluation of progress towards goal: Patient displays adequate comfort level. PO pain medication given as needed per orders. Problem: Safety Goal: Patient will be injury free during hospitalization Description: INTERVENTIONS: 1. Assess patient's risk for falls and implement fall prevention plan of care per policy 2. Provide and maintain a safe environment 3. Proper use of double Identifiers 4. Medication administration using the 5 rights 5. Hand hygiene 6. Specimens are labeled at the bedside 7. Instruct patient/ patient inside technical sales representative about use of safety devices 8. Include patient/ patient inside technical sales representative in decisions related to safety Outcome: Progressing Note: Evaluation of progress towards goal: Patient has remained free from injury and falls. Call light within reach. Problem: Infection Goal: Absence of infection during hospitalization Description: INTERVENTIONS 1. Assess and monitor for signs and symptoms of infection. 2. Monitor lab/diagnostic results. 3. Monitor all insertion sites i.e., indwelling lines, tubes and drains. 4. Monitor endotracheal (as able) and nasal secretions for changes in amount and color. 5. Administer medications as ordered. 6. Instruct and encourage patient and family to use good hand hygiene technique. 7. Identify and instruct patient/patient inside technical sales representative in use of appropriate isolation precautionsfor identified infection/symptoms. 8. Provide and discuss with patient/patient inside technical sales representative on educational MDRO sheet. 9. Encourage and monitor nutritional status daily and consult global commodity manager if indicated. 10. Implement neutropenic guidelines as needed. Outcome: Progressing Note: Evaluation of progress towards goal: no s/s of infection present Problem: Knowledge Deficit Goal: Patient/patient inside technical sales representative demonstrates understanding of disease process, treatment plan,medications, and discharge instructions Description: INTERVENTIONS 1. Complete learning assessment and assess knowledge base 2. Provide teaching at level of understanding 3. Provide teaching via preferred learning method(s) Outcome: Progressing Note: Evaluation of progress towards goal: Patient demonstrates understanding of routine varinder and care. Will provide education as needed Problem: Discharge Planning Goal: Discharge to post-acute care, other facility, or home with appropriate resources Description: Patient's goal is: INTERVENTIONS 1. Conduct assessment to determine patient/family and health care team treatment goals, and need for post-acute services based on payer coverage, community resources, and patient preferences, and barriers to discharge 2. Coordinate with Social work, Care Navigation, and Utilization Review to arrange appropriate level of services according to patient's needs based on patient preference and payer coverage in collaboration with the physician and health care team 3. Address psychosocial, clinical, and financial barriers to discharge as identified in assessment in conjunction with the patient/family and health care team 4. Consult appropriate ancillary services (i.e.. PT/OT/ST, etc) as needed 5. Communicate with and update the patient/family, physician, and health care team regarding progress on the discharge plan 6. Identify discharge learning needs (meds, wound care, etc). 7. Arrange for needed discharge transportation as appropriate Outcome: Progressing Note: Evaluation of progress towards goal: Discharge needs are being identified. Problem: Moderate - High Risk Fall Score Description: [place] Fall Score of =/> 25 or indicated by [facility] Assessment Goal: Patient should be free from fall Description: Interventions: 1. [place] to environment 2. Hourly rounds addressing the 4 P's (Pain, Positioning, Possessions, Potty) 3. Clear area of hazards (spills, clutter, electrical cords, unnecessary equipment) 4. Place equipment (bed & TV controls, call light, phone, urinal) within reach 5. Encourage patient to wear glasses and hearing aides as appropriate 6. Maintain bed in lowest position 7. Lock wheels on bed/wheelchair 8. Provide adequate lighting, including night light 9. Assess need for additional bedding, food/fluids, pain med's prior to sleep/routinely 10. Provide gripper slippers or personal non-skid footwear 11. Teach patient and patient inside technical sales representative to maintain environment for safety and engage in all aspects of fall prevention program 12. Remind patient to call for help before getting out of bed 13. Initiate bed/chair/exit alarms supportive devices as appropriate, (chair wedge, no-skid floor mat, raised edge mattress, hip protectors) 14. Locate patient bed assignment for optimal visualization 15. Evaluate and identify Safe Patient Handling Equipment needs 16. Provide supervision when out of bed or chair 17. Utilize gait belt as needed to assist with ambulation 18. Place adaptive equipment (cane, walker) within reach 19. Request patient inside technical sales representative bring adaptive equipment/mobility aids from home or obtain and provide as needed 20. Consult pharmacy regarding effects of med's affecting mobility, cognition, and alternatives 21. Obtain physician order for PT if risk factors associated with mobility are present 22. Obtain physician order for OT as appropriate 23. Utilize diversional activities 24. Educate patient and patient inside technical sales representative how to maintain a safe environment during visitationtimes (notify nurse prior to leaving bedside) 25. Consider appropriateness of medical or non-biomedical instrument technician 26. Set up voiding schedule as appropriate (every 2 hours) Outcome: Progressing Note: Evaluation of progress towards goal: safety maintained Problem: Vaginal Delivery - Recovery and Goal: Empties bladder Description: Assess bladder and bladder function. INTERVENTION 1. Encourage patient to void Outcome: Progressing Note: Evaluation of progress towards goal: void checks completed * L&D Delivery Note - Chanda Crandall MD - 10/18/2024 1:45 PM EDT Delivery Record Patient Observations (Last 24 hours) None Patient Observations (Last 24 hours) None Rodriguez, Baby Girl Rc [[id number]] Events of Labor labor?: No steroids?: None Cervical ripening date/time: Antibiotics received during labor?: No Rupture date/time: 10/18/24 09:03 Rupture type: Artificial Fluid color: Clear Fluid odor: No Augmentation: Oxytocin, AROM Labor Event Times Labor onset date/time: 10/18/24 05:10 Dilation complete date/time: 10/18/24 11:41 EDT Start pushing date/time: 10/18/2024 11:43 Anesthesia Method: Epidural Anesthesia provided by: PRADEEP Notron Assisted Delivery Forceps attempted?: No Vacuum extractor attempted?: No Document Additional Attempt Document Additional Attempt Shoulder Dystocia Shoulder dystocial present?: No Second Maneuver Third Maneuver Fourth Maneuver Fifth Maneuver Sixth Maneuver Seventh Maneuver Eighth Maneuver \Ninth Maneuver Presentation Presentation: Vertex Arden Information Delivery date/time: 10/18/24 11:58 Delivery type: Vaginal, Spontaneous details: Delivery Providers Delivering clinician: Chanda Crandall MD Provider Role Forrest Day, medical program specialist Nurse Dalia gAuilar, DEANNA Nurse Cord Information Vessels: 3 vessels Complications: None Delayed cord clamping?: Yes Cord clamped date/time: 10/18/2024 11:59 AM Cord blood obtained?: Yes Cord blood disposition: Lab Gases sent?: No Stem cell collection (by )?: No Placenta Date/time: 10/18/2024 12:05 Removal: Spontaneous Appearance: Intact Disposition: discarded hemorrhage: No Resuscitation Method: Suctioning, Tactile stimulation Resuscitation needed: No Additional resources called: No Arden Assessment Living status: Living Skin color: Heart rate: Reflex irritability: Muscle tone: Respiratory effort: Total: 1 Minute: 0 2 2 2 2 8 1 total from OB History 5 Minute: 1 2 2 2 2 9 5 total from OB History 10 Minute: 15 Minute: 20 Minute: Apgars assigned by: Rodolfo DAY RN Skin to Skin Skin to skin initiation date/time: 10/18/24 11:58 EDT Measurements Weight: 3.08 kg Length: 50.2 cm Head circumference: 31.1 cm Chest circumference: 33 cm Lacerations/EBL Surgical or additional est. blood loss (mL): 0 Combined est. blood loss (mL): 0 Other Delivery Procedures No data filed Labor Length 1st stage: 6h 31m 2nd stage: 0h 17m 3rd stage: 0h 07m Patient pushed effectively. of vigorous female infant. No nuchal cord. Apgars 8 and 9. Infant to maternal chest for drying and stimulation. Cord double clamped and cut after 1 minute delay. Cord segment and blood collected. of intact placenta. Fundus firm. Small 1st degree perineal laceration repaired with 3-0 vicryl in figure of eight fashion. EBL 100mL. * Plan of Care - Forrest Day RN - 10/18/2024 7:17 AM EDT Problem: Pain Goal: Patient goal is pain score less than 4, able to rest, and participant in treatment plan as appropriate Description: INTERVENTIONS: 1. Encourage patient or legal inside technical sales representative to report early pain and ask for pain medicine when needed 2. Assess pain using appropriate pain scale and include the scale used when documenting 3. Administer analgesics based on type and severity of pain and evaluate response within appropriate time frame 4. Implement non-pharmacological measures as appropriate and evaluate response 5. Consider cultural and social influences on pain and pain management 6. Notify LIP if interventions ineffective or patient reports new pain 7. Monitor vital signs including pulse ox, end-tidal CO2 based on pain intervention 8. Reassess pain per policy 9. Teach patient or legal inside technical sales representative interventions for comforting Outcome: Progressing Note: Evaluation of progress towards goal: Patient verbalizes tolerable level of pain at this time.Pain medications will be given as needed. Problem: Safety Goal: Patient will be injury free during hospitalization Description: INTERVENTIONS: 1. Assess patient's risk for falls and implement fall prevention plan of care per policy 2. Provide and maintain a safe environment 3. Proper use of double Identifiers 4. Medication administration using the 5 rights 5. Hand hygiene 6. Specimens are labeled at the bedside 7. Instruct patient/ patient inside technical sales representative about use of safety devices 8. Include patient/ patient inside technical sales representative in decisions related to safety Outcome: Progressing Note: Evaluation of progress towards goal: Safe environment maintained. Medications administered using 5 rights. Fall prevention plan implemented as needed. Problem: Infection Goal: Absence of infection during hospitalization Description: INTERVENTIONS 1. Assess and monitor for signs and symptoms of infection. 2. Monitor lab/diagnostic results. 3. Monitor all insertion sites i.e., indwelling lines, tubes and drains. 4. Monitor endotracheal (as able) and nasal secretions for changes in amount and color. 5. Administer medications as ordered. 6. Instruct and encourage patient and family to use good hand hygiene technique. 7. Identify and instruct patient/patient inside technical sales representative in use of appropriate isolation precautionsfor identified infection/symptoms. 8. Provide and discuss with patient/patient inside technical sales representative on educational MDRO sheet. 9. Encourage and monitor nutritional status daily and consult global commodity manager if indicated. 10. Implement neutropenic guidelines as needed. Outcome: Progressing Note: Evaluation of progress towards goal: Patient is free from signs and symptoms of infection. Problem: Knowledge Deficit Goal: Patient/patient inside technical sales representative demonstrates understanding of disease process, treatment plan,medications, and discharge instructions Description: INTERVENTIONS 1. Complete learning assessment and assess knowledge base 2. Provide teaching at level of understanding 3. Provide teaching via preferred learning method(s) Outcome: Progressing Note: Evaluation of progress towards goal: Teaching provided as needed at patient's level of understanding. Problem: Discharge Planning Goal: Discharge to post-acute care, other facility, or home with appropriate resources Description: Patient's goal is: INTERVENTIONS 1. Conduct assessment to determine patient/family and health care team treatment goals, and need for post-acute services based on payer coverage, community resources, and patient preferences, and barriers to discharge 2. Coordinate with Social work, Care Navigation, and Utilization Review to arrange appropriate level of services according to patient's needs based on patient preference and payer coverage in collaboration with the physician and health care team 3. Address psychosocial, clinical, and financial barriers to discharge as identified in assessment in conjunction with the patient/family and health care team 4. Consult appropriate ancillary services (i.e.. PT/OT/ST, etc) as needed 5. Communicate with and update the patient/family, physician, and health care team regarding progress on the discharge plan 6. Identify discharge learning needs (meds, wound care, etc). 7. Arrange for needed discharge transportation as appropriate Outcome: Progressing Note: Evaluation of progress towards goal: Appropriate consults done as needed. Discharge learning needs identified. Problem: - VAGINAL/ SECTION Goal: and maternal status remain reassuring during the process Description: INTERVENTIONS 1. Monitor vital signs 2. Monitor heart rate 3. Monitor uterine activity 4. Monitor labor progression (vaginal delivery) 5. DVT prophylaxis (C/S delivery) 6. Surgical antibiotic prophylaxis (C/S delivery) Outcome: Progressing Note: Evaluation of progress towards goal: Continuous EFM continued as ordered. Problem: Labor pain/anxiety Goal: Patient will verbalize understanding of the labor and delive Description: INTERVENTION 1. Educate patient about the labor process Outcome: Progressing Note: Evaluation of progress towards goal: Teaching provided as needed at patient's level of understanding. Additional Comments: documented in this encounter Plan of Treatment Upcoming Encounters Date Type Department Care Team (Late st Contact Info) Description 11/16/2024 1:30 PM EDT Office Visit [facility] [address] [place] [id number] Emily Martinez, WILLIAM-THERMAL MOLDER [address] [place] [address] 11/29/2024 10:15 AM EDT Visit [facility] [address] [facility] [place] [address] Pati Ward MD [address], [facility] [address] [place] [address] [phone] (work) documented as of this encounter Procedures Procedure Name Priority Date/Time Associated Diagnosis Comments FENTANYL, URINE QUALITATIVE STAT 10/18/2024 9:12 AM EDT DRUG SCREEN, URINE STAT 10/18/2024 9: 12 AM EDT RHOGAM NOT ELIGIBLE Routine 10/18/2024 5 :49 AM EDT SYPHILIS TOTAL(UNKNOWN SYPHILIS STATUS) Routine 10/18/2024 5:49 AM EDT HEMOGLOBIN AND HEMATOCRIT, BLOOD STAT 10/18/2024 5:49 AM EDT TYPE AND SCREEN STAT 10/18/2024 5:49 AM EDT POCT NITRAZINE TEST (IP) Routine 10/18/2024 5:25 AM EDT documented in this encounter Results * Fentanyl, Urine Qualitative (10/18/2024 9:12 AM EDT) FENTANYL, URINE QUAL. Negative Negative 10/18/2024 10:06 AM EDT [facility] Urine Urine specimen collection, clean catch / Unknown 10/18/2024 9:12 AM EDT 10/18/2024 9:37 AM EDT Narrative [facility] - 10/18/2024 10:06 AM EDT Fentanyl screening cutoff = 5ng/ml This report is intended for use in clinical monitoring or management of patients. us Patricia Hidalgo [employer]ACT RET[employer] SERVICE MERCHANDISER-CNM URINE ORDERABLES Final Result [facility] [address] [place] [address], [place] [phone] * Drug Screen, Urine (10/18/2024 9:12 AM EDT) AMPHETAMINE/METHAMP Negative Negative 10/18 10:07 AM EDT [facility] Comment:AMPH/METH screening cut off = 1000 ng/mL COCAINE METABOLITE Negative Negative 2024 10:07 AM EDT [facility] Comment:Cocaine screening cu t off value = 300 ng/mL ECSTASY Negative Negative 10/18/2024 10:07 AM EDT [facility] Comment:Ecstasy screening cu t off value = 500 ng/mL METHADONE Negative Negative 10/18/2024 10:07 AM EDT [facility] Comment:Methadone screening cut off value = 300 ng/mL. OPIATES Negative Negative 10/18/2024 10:07 AM EDT [facility] Comment: Opiates screening cut off value = 300 ng/mL This test is used for the detection of codeine, hydrocodone (>1000 ng/mL), morphine and hydromorphone (>900 ng/mL) in urine. OXYCODONE Negative Negative 10/18/2024 10:07 AM EDT [facility] Comment: Oxycodone screening cut off value = 300 ng/mL This test is used for the detection of oxycodone and oxymorphone in urine. PHENCYCLIDINE Negative Negative 10/18/2024 10:07 AM EDT [facility] Comment:Phencyclidine screen ing cut off value = 25 ng/mL CANNABINOIDS Negative Negative 10/18/2024 10:07 AM T [facility] Comment:Cannabinoids/THC scr eening cut off value = 50 ng/mL Urine Barbiturates Negative Negative 2024 10:07 AM EDT [facility] Comment:Barbiturates screeni ng cut off value = 200 ng/mL BENZODIAZEPINES Negative Negative 10:07 AM T [facility] Comment:Benzodiazepines scre ening cut off value = 200 ng/mL Urine Urine specimen collection, clean catch / Unknown 10/18/2024 9:12 AM EDT 10/18/2024 9:37 AM EDT us Patricia Hidalgo [employer] RET[employer] SERVICE MERCHANDISER-CNM URINE ORDERABLES Final Result [facility] [address] [place] [address], * Rhogam Not Eligible (10/18/2024 5:49 AM EDT) [id number] Not eligible for RhoGAM 10/18/2024 4:05 PM EDT [facility] Blood Venous blood / Unknown Venipuncture / Unknown 10/18/2024 5:49 AM EDT 10/18/2024 5:49 AM EDT Patricia Hidalgo IMPACT RETAIL SERVICE MERCHANDISER-CN LAB ORDERABLES Final R esult [facility] [address] [place] [address], [facility] [address] [place] [address], [place] * Hemoglobin and hematocrit, blood (10/18/2024 5:49 AM EDT) Pathologist [facility] Hemoglobin 13.4 11.7 - 15.5 g/dL 10/18/2024 6:28 AM EDT [facility] Hematocrit 40.0 35 - 47 % 10/18/2024 6:28 AM EDT [facility] Blood Venous blood / Unknown Venipuncture / Unknown 10/18/2024 5:49 AM EDT 10/18/2024 5:49 AM EDT Patricia Hidalgo [employer] RET[employer] SERVICE MERCHANDISER-CNM LAB BLOOD ORDERABLES Fi nal Result [facility] [address] [place] [address], * Type and screen(includes indirect juan) (10/18/2024 5:49 AM EDT) ABO O 10/18/2024 7:30 AM EDT [facility] RH Negative 10/18/2024 7:30 AM EDT [facility] Antibody Screen Negative 10/18/2024 7:30 AM EDT [facility] Blood Venous blood / Unknown Venipuncture / Unknown 10/18/2024 5:49 AM EDT 10/18/2024 5:49 AM EDT Patriciaira Hidalgo [employer] RET[employer] SERVICE MERCHANDISER-CN BLOOD BANK TEST ORDERAB LES Edited Result - Final Performing Organization Address City/[facility] Co de Phone Number [facility] [address] [place] [address], [facility] [address] [place] [address], [place] * Syphilis Total (Unknown Syphilis Status) (10/18/2024 5:49 AM EDT) SYPHILIS TOTAL <0.2 <=0.8 AI 10/18/2024 1:32 PM EDT [facility] Blood Venous blood / Unknown Venipuncture / Unknown 10/18/2024 5:49 AM EDT 10/18/2024 5:49 AM EDT Narrative [facility] - 10/18/2024 1:32 PM EDT NON REACTIVE No serologic evidence of infection to Treponema pallidum. Repeat testing may be considered in patients with suspected acute or primary syphilis in 2 to 4 weeks. Patricia Hidalgo APRN-CN LAB BLOOD ORDERABLES Fi nal Result Performing Organization Address City/[facility]/ZIP Co de Phone Number [facility] [address] [place] [address], [place] [phone] * POCT Nitrazine Test (10/18/2024 5:25 AM EDT) Swab 10/18/2024 5:25 AM EDT Patricia Hidalgo [employer] RET[employer] SERVICE MERCHANDISER-CNM POINT OF CARE TEST ORDE RABLES Final Result documented in this encounter Visit Diagnoses Diagnosis Normal labor- Primary documented in this encounter Admitting Diagnoses Diagnosis Normal labor documented in this encounter Administered Medications Inactive Administered Medications - up to 3 most recent administrations Medication Order MAR Action Action Date Dose Rate Site acetaminophen (TYLENOL EXTRA STRENGTH) tablet 1,000 mg 1,000 mg, oral, Every 8 hours PRN, moderate pain - pain scale 4-6, Starting on Fri10/18/24 at 1410, Given 10/18/2024 8:22 PM EDT 1,000 mg docusate sodium (COLACE) capsule 100 mg 100 mg, oral, 2 times daily, First dose on Fri10/18/24 at 1500, , Look-alike/sound-alike medication - verify indication for use. Given 10/19/2024 8:06 AM EDT 100 mg Given 10/18/2024 8:22 PM EDT 100 mg fentaNYL (PF) 2 mcg/mL - bupivacaine 0.1% in sodium chloride 0.9 % PIEB with PCEA (epidural) epidural, Continuous, Starting on Fri10/18/24 at 0600, L&D Pre-Delivery, TTH only Pump programming and rate changes to be done by Anesthesia Prescriber ONLY. NO additional IM, IV, or oral opiates, sedatives, or hypnotics unless approved by Anesthesia. All additives must be preservative free. RN may discontinue epidural infusion post-procedure/delivery. RN may remove Epidural Catheter post-procedure / delivery unless otherwise specified FOR EPIDURAL USE ONLY Look-alike/sound-alike medication - verify indication for use., LOADING (Bolus) Dose: 10 mL, INTERMITTENT Bolus Dose: 10 mL, INTERMITTENT Bolus Dose Interval: 45 min, PCEA Dose: 5 mL, Lock out Interval: 10 min, One Hour Dose Limit: 40 mL New Bag 10/18/2024 10:58 AM EDT Given 10/18/2024 6:19 AM EDT 10 mL ibuprofen (MOTRIN) tablet 800 mg 800 mg, oral, Every 8 hours PRN, cramping, Starting on Fri10/18/24 at 1410, , Look-alike/sound-alike medication - verify indication for use. Take/Give with food or milk. Given 10/19/2024 5:51 AM EDT 800 mg Given 10/18/2024 3:05 PM EDT 800 mg lactated ringers bolus 500 mL, intravenous, at 968 mL/hr, Administer over 31 Minutes, As needed, to improve utero-placental perfusions and/or relieve cord compression and/or tachysystole contraction pattern, Starting on Fri10/18/24 at 0523, For 2 doses, (tacysystole contraction pattern = more than 5 contractions in a 10 minute segment averaged over 30 minutes). Max of 1000 mL Rate/Dose Change 10/18/2024 8:17 AM EDT 999 mL/hr Rate/Dose Change 10/18/2024 8:17 AM EDT 968 mL/ hr lactated ringers bolus 500 mL, intravenous, at 968 mL/hr, Administer over 31 Minutes, As needed, administer prior to epidural/intrathecal analgesia, Starting on Fri10/18/24 at 0554, For 1 dose, L&D Pre-Delivery, Administer prior to epidural/intrathecal analgesia. Rate/Dose Change 10/18/2024 10:12 AM EDT 999 mL/hr Rate/Dose Change 10/18/2024 10:09 AM EDT 968 mL /hr lactated ringers infusion 125 mL/hr, intravenous, Continuous, Starting on Fri10/18/24 at 0530, For 1 day, L&D Pre-Delivery Rate/Dose Change 10/18/2024 12:02 PM EDT 83 mL/hr Rate/Dose Verify 10/18/2024 12:00 PM EDT 125 mL /hr Rate/Dose Verify 10/18/2024 10:40 AM EDT 125 mL /hr lactated ringers infusion 83 mL/hr, intravenous, Continuous PRN, post-delivery hemostasis, Starting on Fri10/18/24 at 0523, For 1 day, Administer for 4 hours. Administer with Oxytocin bolus and infusion New Bag 10/18/2024 2:56 PM EDT 83 mL/hr 83 mL/hr Rate/Dose Verify 10/18/2024 2:49 PM EDT 83 mL/h r New Bag 10/18/2024 12:04 PM EDT 83 mL/hr 83 mL/hr ondansetron (PF) (ZOFRAN) injection 4 mg 4 mg, intravenous, Every 6 hours PRN, nausea, vomiting, Starting on Fri10/18/24 at 0554, L&D Pre-Delivery, Intravenous administration preferred to be given over 2-5 minutes. Given 10/18/2024 8:20 AM EDT 4 mg oxytocin (PITOCIN) bolus from bag solution 10 Units 10 Units, intravenous, Administer over 30 Minutes, Once as needed, post-delivery hemostasis, Starting on Fri10/18/24 at 0523, For 1 dose, , Administer via programmable pump with lactated ringers solution Bolus from Bag 10/18/2024 12:03 PM EDT 10 Units oxytocin (PITOCIN) infusion 30 units/500 mL in lactated ringers (0.06 units/mL premix) 42 kendra-units/min (42 mL/hr), intravenous, Continuous PRN, for post-delivery hemostasis, Starting on Fri10/18/24 at 0523, Administer for 4 hours. Administer via programmable pump with lactated ringers solution 1 mL/hour = 1 kendra-unit/min Rate/Dose Verify 10/18/2024 2:49 PM EDT 42 kendra-units/min 42 mL/hr Rate/Dose Change 10/18/2024 12:33 PM EDT 42 kendra-units/mi n 42 mL/hr oxytocin (PITOCIN) infusion 30 units/500 mL in lactated ringers (0.06 units/mL premix) 1-20 kendra-units/min (1-20 mL/hr), intravenous, Titrated, Starting on Fri10/18/24 at 1000, L&D Pre-Delivery, Administer via programmable infusion pump. Starting rate is 1 milliunit/minute.Titrate by 1 milliunit/min every 30 minutes until 5 or less contractions occur in a 10 minute segment, averaged over a 30 minute period. Discontinue infusion for the following abnormal FHR tracings: -Category 3 FHR -Category 2 FHR with significant decelerations for greater than 50% of contractions, lasting longer than 60 minutes despite conservative therapeutic interventions -Minimal variability without accelerations that persist for 60 minutes despite conservative therapeutic interventions -Prolonged deceleration not resolved with conservative therapeutic interventions *Tachysystole is defined by the NICHD as more than five contractions in ten minutes, averaged over a 30-minute window., When Tachysystole is present while oxytocin is infusing, and heart rate (FHR) tracing is: Category 1: 1. Perform a maternal position change and give IV bolus of Lactated Ringers 500mL at a rate of 968 mLs/hour for a max of 1,000 mLs, observe for ten minutes. 2. If tachysystole continues, then decrease oxytocin rate by half, observe for 20 minutes, and notify provider. 3. If tachysystole does not resolve, discontinue oxytocin and notify provider. Category 2 with moderate variability and no significant decelerations: 1. Decrease oxytocin rate by half, change maternal position, give IV bolus of Lactated Ringers 500mL at a rate of 968 mLs/hour for a max of 1000 mLs, observe for 20 minutes, and notify provider. 2. If tachysystole does not resolve, discontinue oxytocin and notify provider. Category 2 with significant decelerations or Category 3: 1. Discontinue oxytocin, change maternal position, give IV bolus of Lactated Ringers 500mL at a rate of 968 mLs/hour for a max of 1000 mLs, administer oxygen via non-rebreather mask at 10L, and notify provider. If after at least a 30-minute period of observation, tachysystole resolves and pre-oxytocin checklist criteria is met, may restart oxytocin infusion at: Half of last infusing rate if oxytocin is off for less than 40 minutes. Beginning rate if oxytocin is off for greater than 40 minutes. [Maximum dose 20 milliunits/min unless specifically ordered otherwise by provider]. 1 mL/hour = 1 kendra-unit/min Rate/Dose Verify 10/18/2024 12:00 PM EDT 1 kendra-units/mi n 1 mL/hr New Bag 10/18/2024 9:56 AM EDT 1 kendra-units/min 1 mL/h r polyethylene glycol (GLYCOLAX) packet 17 g 17 g, oral, Daily, First dose on Fri10/18/24 at 1500, , Look-alike/sound-alike medication - verify indication for use. Dissolve 1 packet (17 gm) in 8 ounces of water, juice, soda, coffee or tea. Given 10/19/2024 8:06 AM EDT 17 g sodium chloride 0.9 % flush 3 mL 3 mL, intravenous, Every 8 hours, First dose on Fri10/18/24 at 1415, , Flush peripheral line per protocol Given 10/18/2024 8:23 PM EDT 3 mL documented in this encounter Active and Recently Administered Medications Times are shown in EDT. Scheduled Medication Order 10/17/2024 10/18/2024 10/19/2024 docusate sodium (COLACE) capsule 100 mg 100 mg, oral, 2 times daily, First dose on Fri10/18/24 at 1500, , Look-alike/sound-alike medication - verify indication for use. 1500 (Not Given - Provider: Alisha Flynn RN - Reason: Patient/family refused)2021 (Given - Provider: Isabel Mcdonald RN) 08 (Given - Provider: Alisha Flynn RN) PNV,calcium 90-pake-xlsln acid ( PLUS) 27 mg iron- 1 mg tablet 1 tablet 1 tablet, oral, Daily, First dose on Fri10/18/24 at 1500, 1500 (Not Given - Provider: Alisha Flynn RN - Reason: Patient/family refused) 0900 (Not Given - Provider: Alisha Flynn RN - Reason: Patient/family refused) polyethylene glycol (GLYCOLAX) packet 17 g 17 g, oral, Daily, First dose on Fri10/18/24 at 1500, , Look-alike/sound-alike medication - verify indication for use. Dissolve 1 packet (17 gm) in 8 ounces of water, juice, soda, coffee or tea. 1500 (Not Given - Provider: Alisha Flynn RN - Reason: Patient/family refused) 805 (Given - Provider: Alisha Flynn RN) sodium chloride 0.9 % flush 3 mL 3 mL, intravenous, Every 8 hours, First dose on Fri10/18/24 at 1415, , Flush peripheral line per protocol 1500 (Not Given - Provider: Alisha Flynn RN - Reason: IV infusing)2022 (Given - Provider: Isabel Mcdonald RN) 0615 (Due)1415 (Due) Continuous Medication Order 10/17/2024 10/18/2024 10/19/2024 fentaNYL (PF) 2 mcg/mL - bupivacaine 0.1% in sodium chloride 0.9 % PIEB with PCEA (epidural) (CANCELED) epidural, Continuous, Starting on Fri10/18/24 at 0600, L&D Pre-Delivery, TTH only Pump programming and rate changes to be done by Anesthesia Prescriber ONLY. NO additional IM, IV, or oral opiates, sedatives, or hypnotics unless approved by Anesthesia. All additives must be preservative free. RN may discontinue epidural infusion post-procedure/delivery. RN may remove Epidural Catheter post-procedure / delivery unless otherwise specified FOR EPIDURAL USE ONLY Look-alike/sound-alike medication - verify indication for use., LOADING (Bolus) Dose: 10 mL, INTERMITTENT Bolus Dose: 10 mL, INTERMITTENT Bolus Dose Interval: 45 min, PCEA Dose: 5 mL, Lock out Interval: 10 min, One Hour Dose Limit: 40 mL 0619 (Given - Provider: Lukas Pacheco APRN-PICKER TENDER HELPER)0700 (Handoff - Provider: Forrest Day RN)1058 (New Bag - Provider: Forrest Day RN - Comment: started by PICKER TENDER HELPER)1110 (Controlled Substance [place] - Provider: Forrest Day RN)1305 (Stop Bag - Provider: Forrest Day RN)1400 (Incomplete - Provider: Forrest Day RN) lactated ringers infusion (CANCELED) 125 mL/hr, intravenous, Continuous, Starting on Fri10/18/24 at 0530, For 1 day, L&D Pre-Delivery 0549 (New Bag - Provider: Maddison Gonzalez RN)0558 (Rate/Dose Change - Provider: Forrest Day RN)0628 (Rate/Dose Change - Provider: Forrest Day RN)0700 (Rate/Dose Verify - Provider: Forrest Day RN)0816 (Rate/Dose Change - Provider: Forrest Day RN)0836 (New Bag - Provider: Forrest Day RN)1007 (Rate/Dose Change - Provider: Forrest Day RN)1008 (Stop Bag - Provider: Forrest Day RN)1039 (Rate/Dose Change - Provider: Forrest Day RN)1040 (Rate/Dose Verify - Provider: Forrest Day RN)1200 (Rate/Dose Verify - Provider: Forrest Day RN)1202 (Rate/Dose Change - Provider: Forrest Day RN)1204 (Stop Bag - Provider: Forrest Day RN) oxytocin (PITOCIN) infusion 30 units/500 mL in lactated ringers (0.06 units/mL premix) (CANCELED) 1-20 kendra-units/min (1-20 mL/hr), intravenous, Titrated, Starting on Fri10/18/24 at 1000, L&D Pre-Delivery, Administer via programmable infusion pump. Starting rate is 1 milliunit/minute.Titrate by 1 milliunit/min every 30 minutes until 5 or less contractions occur in a 10 minute segment, averaged over a 30 minute period. Discontinue infusion for the following abnormal FHR tracings: -Category 3 FHR -Category 2 FHR with significant decelerations for greater than 50% of contractions, lasting longer than 60 minutes despite conservative therapeutic interventions -Minimal variability without accelerations that persist for 60 minutes despite conservative therapeutic interventions -Prolonged deceleration not resolved with conservative therapeutic interventions *Tachysystole is defined by the NICHD as more than five contractions in ten minutes, averaged over a 30-minute window., When Tachysystole is present while oxytocin is infusing, and heart rate (FHR) tracing is: Category 1: 1. Perform a maternal position change and give IV bolus of Lactated Ringers 500mL at a rate of 968 mLs/hour for a max of 1,000 mLs, observe for ten minutes. 2. If tachysystole continues, then decrease oxytocin rate by half, observe for 20 minutes, and notify provider. 3. If tachysystole does not resolve, discontinue oxytocin and notify provider. Category 2 with moderate variability and no significant decelerations: 1. Decrease oxytocin rate by half, change maternal position, give IV bolus of Lactated Ringers 500mL at a rate of 968 mLs/hour for a max of 1000 mLs, observe for 20 minutes, and notify provider. 2. If tachysystole does not resolve, discontinue oxytocin and notify provider. Category 2 with significant decelerations or Category 3: 1. Discontinue oxytocin, change maternal position, give IV bolus of Lactated Ringers 500mL at a rate of 968 mLs/hour for a max of 1000 mLs, administer oxygen via non-rebreather mask at 10L, and notify provider. If after at least a 30-minute period of observation, tachysystole resolves and pre-oxytocin checklist criteria is met, may restart oxytocin infusion at: Half of last infusing rate if oxytocin is off for less than 40 minutes. Beginning rate if oxytocin is off for greater than 40 minutes. [Maximum dose 20 milliunits/min unless specifically ordered otherwise by provider]. 1 mL/hour = 1 kendra-unit/min 0956 (New Bag - Provider: Forrest Day RN)1200 (Rate/Dose Verify - Provider: Forrest Day RN)1202 (Stop Bag - Provider: Forrest Day RN) PRN Medication Order 10/17/2024 10/18/2024 10/19/2024 acetaminophen (TYLENOL EXTRA STRENGTH) tablet 1,000 mg 1,000 mg, oral, Every 8 hours PRN, moderate pain - pain scale 4-6, Starting on Fri10/18/24 at 1410, 2021 (Given - Provider: Isabel Mcdonald RN) acetaminophen (TYLENOL) tablet 650 mg 650 mg, oral, Every 4 hours PRN, mild pain - pain scale 1-3, Starting on Fri10/18/24 at 1410, benzocaine-menthoL (DERMOPLAST) topical spray 1 Application 1 Application, topical, As needed, pain, perineum discomfort, Starting on Fri10/18/24 at 1410, , May keep at bedside bisacodyL (DULCOLAX) suppository 10 mg 10 mg, rectal, Once as needed, constipation, no relief from docusate or senna/docusate, Starting on Fri10/19/24 at 0000, For 1 dose, , Start 2nd day Look-alike/sound-alike medication - verify indication for use. carboprost (HEMABATE) injection 250 mcg 250 mcg, intramuscular, Once as needed, hemorrhage management, Starting on Fri10/18/24 at 1410, For 1 dose, , Administer as directed by the provider for hemorrhage management. DO NOT ADMINISTER IV. Contraindicated if patient has a history of asthma or cardiovascular disease. hydrocortisone (ANUSOL-HC) 2.5 % rectal cream 1 Application 1 Application, rectal, As needed, hemorrhoids, Starting on Fri10/18/24 at 1410, , May keep at bedside, Indications: hemorrhoids ibuprofen (MOTRIN) tablet 800 mg 800 mg, oral, Every 8 hours PRN, cramping, Starting on Fri10/18/24 at 1410, , Look-alike/sound-alike medication - verify indication for use. Take/Give with food or milk. 1505 (Given - Provider: Alisha Flynn, RN) 0551 (Given - Provider: Isabel Mcdonald RN) lactated ringers bolus (CANCELED) 500 mL, intravenous, at 968 mL/hr, Administer over 31 Minutes, As needed, to improve utero-placental perfusions and/or relieve cord compression and/or tachysystole contraction pattern, Starting on Fri10/18/24 at 0523, For 2 doses, (tacysystole contraction pattern = more than 5 contractions in a 10 minute segment averaged over 30 minutes). Max of 1000 mL 0817 (Rate/Dose Change - Provider: Forrest Day RN)0817 (Rate/Dose Change - Provider: Forrest Day RN)0835 (Stop Bag - Provider: Forrest Day RN) lactated ringers bolus (CANCELED) 500 mL, intravenous, at 968 mL/hr, Administer over 31 Minutes, As needed, administer prior to epidural/intrathecal analgesia, Starting on Fri10/18/24 at 0554, For 1 dose, L&D Pre-Delivery, Administer prior to epidural/intrathecal analgesia. 1009 (Rate/Dose Change - Provider: Forrest Day RN)1012 (Rate/Dose Change - Provider: Forrest Day RN)1038 (Stop Bag - Provider: Forrest Day RN)1039 (Stop Bag - Provider: Forrest Day RN) lactated ringers infusion(Linked Group 1) 83 mL/hr, intravenous, Continuous PRN, post-delivery hemostasis, Starting on Fri10/18/24 at 0523, For 1 day, Administer for 4 hours. Administer with Oxytocin bolus and infusion 1204 (New Bag - Provider: Dalia Aguilar RN)1449 (Rate/Dose Verify - Provider: Forrest Day RN)1456 (New Bag - Provider: Alisha Flynn, RN)1632 (Stop Bag - Provider: Alisha Flynn RN) lactated ringers infusion 999 mL/hr, intravenous, Continuous PRN, hemorrhage treatment, Starting on Fri10/18/24 at 1410, For 1 day, , Per infusion pump. For hemorrhage treatment, administer as directed by provider methylergonovine (METHERGINE) injection 200 mcg 200 mcg, intramuscular, Once as needed, hemorrhage management, Starting on Fri10/18/24 at 1410, For 1 dose, , Administer as directed by the provider for hemorrhage treatment. DO NOT ADMINISTER IV. Contraindicated if patient has a sensitivity or Systolic BP greater than 140 or Diastolic BP greater than 90. Look-alike/sound-alike medication - verify indication for use. miSOPROStoL (CYTOTEC) tablet 800 mcg 800 mcg, sublingual, Once as needed, hemorrhage management, Starting on Fri10/18/24 at 1410, For 1 dose, , Administer as directed by the provider for hemorrhage management.Use only if Hypertensive and Asthmatic Look-alike/sound-alike medication - verify indication for use. modified lanolin (LANSINOH) 100 % cream cream 1 Application 1 Application, topical, As needed, sore/cracked nipples, Starting on Fri10/18/24 at 1410, , May keep at bedside ondansetron (PF) (ZOFRAN) injection 4 mg (CANCELED) 4 mg, intravenous, Every 6 hours PRN, nausea, vomiting, Starting on Fri10/18/24 at 0554, L&D Pre-Delivery, Intravenous administration preferred to be given over 2-5 minutes. 0820 (Given - Provider: Forrest Day RN) oxytocin (PITOCIN) bolus from bag solution 10 Units (COMPLETED) 10 Units, intravenous, Administer over 30 Minutes, Once as needed, post-delivery hemostasis, Starting on Fri10/18/24 at 0523, For 1 dose, , Administer via programmable pump with lactated ringers solution 1203 (Bolus from Bag - Provider: Dalia Aguilar RN) oxytocin (PITOCIN) infusion 30 units/500 mL in lactated ringers (0.06 units/mL premix)(Linked Group 1) 42 kendra-units/min (42 mL/hr), intravenous, Continuous PRN, for post-delivery hemostasis, Starting on Fri10/18/24 at 0523, Administer for 4 hours. Administer via programmable pump with lactated ringers solution 1 mL/hour = 1 kendra-unit/min 0936 (Due)1233 (Rate/Dose Change - Provider: Forrest Day RN)1449 (Rate/Dose Verify - Provider: Forrest Day RN)1632 (Stop Bag - Provider: Alisha Flynn RN) oxytocin (PITOCIN) injection 10 Units 10 Units, intramuscular, Once as needed, hemorrhage management, Starting on Fri10/18/24 at 1410, For 1 dose, Administer as directed by provider. rho(D) immune globulin (RHOGAM) injection 300 mcg 300 mcg, intramuscular, Once as needed, if blood bank indicates criteria are met, Starting on Fri10/18/24 at 1410, For 1 dose, , If prescribed intramuscularly: Adults, teens and children greater than or equal to 3 years: administer in the deltoid (preferred) or anterolateral thigh. Do NOT administer in the gluteal muscle. This item is provided by blood bank. simethicone (MYLICON) chewable tablet 80 mg 80 mg, oral, 4 times daily before meals and at bedtime as needed, flatulence, abdominal discomfort caused by gas and distension, Starting on Fri10/18/24 at 1410, , Maximum dose 500 mg daily sodium chloride 0.9 % flush 3 mL 3 mL, intravenous, As needed, line care, to maintain patency, Starting on Fri10/18/24 at 1410, tranexamic acid (CYKLOKAPRON) injection 1,000 mg 1,000 mg, intravenous, Administer over 10 Minutes, As needed, hemostasis/ hemorrhage management, Starting on Fri10/18/24 at 1410, For 2 doses, , As directed by the provider for hemostasis/ hemorrhage management. Give slow IV push over 10 minutes, may repeat one time 30 minutes after initial dose. maine Cabrera (PREPARATION H TOTABLE) pad 1 Application 1 Application, topical, As needed, hemorrhoids, Starting on Fri10/18/24 at 1410, , May keep at bedside Linked Groups Order Group 1: oxytocin (PITOCIN) infusion 30 units/500 mL in lactated ringers (0.06 units/mL premix)Jump to med 42 kendra-units/min (42 mL/hr), intravenous, Continuous PRN, for post-delivery hemostasis, Starting on Fri10/18/24 at 0523, Administer for 4 hours. Administer via programmable pump with lactated ringers solution 1 mL/hour = 1 kendra-unit/min And lactated ringers infusionJump to med 83 mL/hr, intravenous, Continuous PRN, post-delivery hemostasis, Starting on Fri10/18/24 at 0523, For 1 day, Administer for 4 hours. Administer with Oxytocin bolus and infusion documented in this encounter Additional Health Concerns Assessment Noted Time PHQ-9 Depression Total Score: 0 03/05/20 24 1:19 PM EDT A Body Mass Index follow-up plan has been documented for the patient 04/03/2023 2:36 PM EST documented as of this encounter Care Teams Accounting Lecturer Relationship Specialty Start Date End Date Emily Martinez APRN-[employer] [address] [place] [address] PCP - General Family Medicine 08/28/18 documented as of this encounter
--- OUTSIDE RECORDS SUMMARY | 2024-10-18 05:54 | XMS_ITS | Encounter Summary ---
Author Organization [facility] tem Address [id number] [address] [place] [address] Care Team Providers Care Radiotelephone Operator Name Role Phone Emily Martinez AGRICULTURE SCIENCE TEACHER-[facility] Primary Care Provide r Reason for Visit * Auth/Cert (Routine) Specialty Diagnoses / Procedures Referred By Contac t Referred To Contact Diagnoses Uterine contractions Normal labor Chelsi Farmer MD [address] [place] [address], [address] [place] [address] Phone: tel: fax: Referral ID Status Reason Start Date Expiration Date Visits Re quested Visits Authorized [id number] 1 1 Encounter Details Date Type Department Care Team (Late st Contact Info) Description 10/18/2024 5:54 AM EDT Anesthesia Event [facility] - Labor [address] [place] [address] Tom Portillo MD [address] [place] [address] Lukas Pacheco AGRICULTURE SCIENCE TEACHER-COMMERCIAL CREDIT LEAD [address] [place] [address] Anesthesia Record Procedure Summary Procedure Name Responsible Anesthesiologist Anesthesia Start Time Anesthesia Stop Time LABOR ANALGESIA Tom M Bandar, MD 10/18/24 0554 5 1228 Events Date Time Event Comment 10/18/2024 0553 0554 An Start 0611 Epidural Placed 1228 An Stop Meds Name Total fentaNYL (PF) 2 mcg/mL - bup ivacaine 0.1% in sodium chloride 0.9 % PIEB with PCEA (epidural) 10 mL * Agents No agents on file. * Blood No blood administrations on file. Lines, Drains, and Airways Type Details Placement Removal Peripheral IV Placement Date: 10/03 10/27; Placement Time: 05; Catheter Size: 18 G; Orientation: Left, Posterior; Location: Forearm; Site Prep: Chlorhexadine and isopropyl alcohol; Local Anes: None; Technique: Anatomical landmarks; Inserted by: Unruly Maradiaga RN; Insertion Attempts: 1; Patient Tolerance: Tolerated well; Removal Date: 10/19/24; Removal Time: 1045; Removal Reason: Patient discharged 10/18/24 0519 by Jody Maradiaga RN 10/19/24 1045 by Malissa Rodarte RN Epidural Placement Date: 10/03 10/27; Placement Time: 0603 (created via procedure documentation); Location: L4-L5; Pt Tolerance: Tolerated well; Removal Date: 10/18/24; Removal Time: 1209 (removed via procedure documentation) 10/18/24 0603 by CHRISTIANO TaiCOMMERCIAL CREDIT LEAD 10/18/24 1209 by Deepak Jason APRNCOMMERCIAL CREDIT LEAD Urethral Catheter Placement Date: 10/03 10/27; Placement Time: 0818; Inserted by: arslan virk rn; Type: Double-lumen, Non-latex; Size: 14 Fr.; Balloon Size: 10 mL; Urine Returned: Yes; Removal Date: 10/18/24; Removal Time: 1141 10/18/24 0818 by Forrest Virk RN 10/18/24 1141 by Forrest Virk RN Epidural Placement Date: 10/03 10/27; Placement Time: 1045 (created via procedure documentation); Location: L3-L4; Pt Tolerance: Tolerated well; Removal Date: 10/18/24; Removal Time: 1358 10/18/24 1045 by Deepak Jason APRN-PRADEEP 10/18/24 1358 by Forrest Virk RN documented in this encounter Social History Tobacco Use Types Packs/Day Years [...] 01/28/2021 How often do you attend chur or rastafari services? More than 4 times per year 01/28/2021 Do you belong to any clubs o r organizations such as islam groups, unions, fraternal or athletic groups, or [...] Answer Date Recorded Total Score 0 03/05/2024 [facility] of Occupat ional Health - Occupational Stress [...] Recorded Do you need help finding a [facility] career center and/or a training [...] on file documented as of this encounter Functional Status documented as of this encounter OR Notes * Anesthesia Procedure Notes - SAUL Estrada - 10/18/2024 12:09 PM EDTAssociated Order(s): Epidural Block Procedure: Epidural Block Patient Location: OB Start Time: 10/18/2024 10:45 AM End Time: 10/18/2024 10:53 AM IV In situ: Peripheral General Information and Staff: Service Provider: Tom Portillo MD COMMERCIAL CREDIT LEAD: SAUL Estrada Placed By: SAUL Estrada Checklist: Patient Identified, IV Checked, Risks and Benefits Discussed, Surgical Consent, Monitorsand Equipment Checked, Pre-op Evaluation and Timeout Performed Fire Risk Assessment Score: 0 Epidural: Patient Position: Sitting Prep: Chlorhexidine and Isopropyl Alcohol, Patient Draped and Maximum Sterile Barriers Used Monitoring: Heart Rate, Monitor, Blood Pressure and Continuous Pulse Ox Oxygen Source: Room Air Approach: Midline Location: L3-L4 Injection Technique: NICK w/PFNS Injection Method: Catheter Secured with: Transparent Dressing and Taped Dressing Type: Tape Local Infiltration: Lidocaine 1% Dose: 3 mL Needle and Epidural Catheter: Needle Type: Tuohy Needle Gauge: 17 G Needle Length: 9 cm OR NICK: 5.5 Catheter Type: Side Hole Catheter Size: 20 G Catheter at Skin Depth: 11.5 cm Number of Attempts: 1 Test Dose: Negative and Lidocaine 1.5% with Epinephrine 1:200,000 Dose: 3 mL Date and Time Given: 10/18/2024 10:53 AM Patient Tolerance: Tolerated Well Injection Assessment: Negative Aspiration for Blood, No Paresthesia on Injection, Negative CSF flowand Negative for S/S of Intravenous or Intrathecal Injection * Anesthesia Procedure Notes - SAUL Tai - 10/18/2024 6:24 AM EDTAssociated Order(s): Epidural Block Procedure: Epidural Block Patient Location: OB Start Time: 10/18/2024 6:03 AM End Time: 10/18/2024 6:11 AM IV In situ: Peripheral General Information and Staff: Service Provider: David Naidu MD COMMERCIAL CREDIT LEAD: SAUL Tai Placed By: SAUL Tai Checklist: Patient Identified, IV Checked, Risks and Benefits Discussed, Surgical Consent, Monitorsand Equipment Checked, Pre-op Evaluation and Timeout Performed Fire Risk Assessment Score: 0 Epidural: Patient Position: Sitting Prep: Chlorhexidine, Patient Draped and Maximum Sterile Barriers Used Monitoring: Heart Rate, Continuous Pulse Ox, Monitor and Blood Pressure Oxygen Source: Room Air Approach: Midline Location: L4-L5 Injection Technique: NICK w/Air Injection Method: Catheter Secured with: Transparent Dressing and Taped Dressing Type: Transparent and Tape Local Infiltration: Lidocaine 1% Dose: 3 mL Needle and Epidural Catheter: Needle Type: Tuohy Flushed with PFNS 5 mL Needle Gauge: 18 G Needle Length: 9 cm OR NICK: 6 Catheter Type: Side Hole Catheter Size: 20 G Catheter at Skin Depth: 12 cm Number of Attempts: 1 Test Dose: Negative and Lidocaine 1.5% with Epinephrine 1:200,000 Dose: 5 mL Date and Time Given: 10/18/2024 6:11 AM Patient Tolerance: Tolerated Well Assessment: Sensory Level: T10 Injection Assessment: Negative Aspiration for Blood, No Paresthesia on Injection, Negative CSF flowand Negative for S/S of Intravenous or Intrathecal Injection * Anesthesia Preprocedure Evaluation - SAUL Tai - 10/18/2024 5:50 AM EDT Images from the original note were not included. ANESTHESIA PRE-PROCEDURE EVALUATION [facility] * No procedures listed * ANESTHESIA PHYSICAL EXAM Patient summary reviewed and nursing notes reviewed. No history of anesthetic complications Airway Mallampati: II TM distance: >3 FB Neck ROM: full Patient is not intubated Patient does not have tracheostomy (-) vocal cord disorder Dental : exam normal Pulmonary : exam normal Cardiovascular : exam normal Abdominal (+) obesity Other Findings OB History 1 Para 0 Term 0 0 AB 0 Living 0 SAB 0 IAB 0 Ectopic 0 Multiple 0 Live Births 0 Estimated Date of Delivery: 10/14/24 -- Bee Venom Protein (Honey Bee) -- Anaphylaxis -- Hornet Venom -- Anaphylaxis -- Venom-Wasp -- Anaphylaxis -- Penicillins -- Nausea Patient Active Problem List: Allergic reaction to bee sting Gastroesophageal reflux disease Diarrhea Supervision of normal first , antepartum Rh negative state in antepartum period Normal labor Past Medical History: 08/28/2018: Allergic reaction to bee sting 08/28/2018: Depression Comment: situational no issues since college No date: GERD (gastroesophageal reflux disease) Past Surgical History: No date: WISDOM TOOTH EXTRACTION Scheduled Meds:??? sodium chloride, 3 mL, intravenous, Q12H TIFFANY Continuous Infusions:??? lactated ringer's, 999 mL/hr ??? lactated ringer's, 125 mL/hr, Last Rate: 125 mL/hr (10/18/24 0549) ??? lactated ringer's, 250 mL/hr ??? oxytocin, 42 kendra-units/min AND lactated ringer's, 83 mL/hr PRN Meds:.??? acetaminophen ??? carboprost ??? lactated ringers ??? lactated ringers ??? lactated ringer's ??? lactated ringer's ??? oxytocin AND lactated ringer's ??? lidocaine PF ??? methylergonovine ??? miSOPROStoL ??? nalbuphine (NUBAIN) injection OR nalbuphine (NUBAIN) injection ??? ondansetron ??? oxytocin ??? oxytocin ??? sodium chloride ??? tranexamic acid BP 114/79 Pulse 99 Temp 36.4 ??C (97.5 ??F) (Oral) Resp 18 Ht 162.6 cm (5' 4 ) Wt 69.9 kg(154 lb) LMP 01/08/2024 (Exact Date) BMI 26.43 kg/m?? ANESTHESIA PLAN ASA 2 Anesthesia Type: epidural Anesthetic risks, plan and alternatives discussed with Patient. Plan discussed with Attending. Specialty Monitors: Monitor Post op Pain Management: Epidural Analgesia Transfer to OB PONV: High Risk Total Score: 3 Female patient Non-smoker Intended opioid administration Criteria that do not apply: History of PONV and/or Motion Sickness RCRI: Low Risk: Score of 0 = 3.9% (2.8-5.4%) Risk of major cardiac event Score of 1 = 6.0% (4.9-7.4%) Risk of major cardiac event Total Score: 0 Criteria that do not apply: Cerebrovascular Disease Ischemic Heart Disease Congestive Heart Failure Elevated Risk Surgery Pre-operative Treatment with Insulin Pre-operative Creatinine >2 mg/dL / 176.8 mol/L Patient Active Problem List Diagnosis ??? Allergic reaction to bee sting ??? Gastroesophageal reflux disease ??? Diarrhea ??? Supervision of normal first , antepartum ??? Rh negative state in antepartum period ??? Normal labor documented in this encounter Plan of Treatment Upcoming Encounters Date Type Department Care Team (Late st Contact Info) Description 11/16/2024 1:30 PM EDT Office Visit [facility] [address] [phone] Emily Martinez APRN-CNP [address] [place] [address] 11/29/2024 10:15 AM EDT Visit [facility] [address] [facility] [facility] [address] [place] [address] Pati Ward MD [address] [facility] [place] [address] documented as of this encounter Procedures Procedure Name Priority Date/Time Associated Diagnosis Comments ANESTHESIA EPIDURAL BLOCK Routine 10/18/2024 12:09 PM EDT ANESTHESIA EPIDURAL BLOCK Routine 10/18/2024 6:24 AM EDT documented in this encounter Results * PM EPIDURAL (10/18/2024 12:09 PM EDT) Narrative Deepak Jason APRN-CRNA - 10/18/2024 12:09 PM EDT SAUL Estrada 10/18/2024 12:09 PM Procedure: Epidural Block Patient Location: OB Start Time: 10/18/2024 10:45 AM End Time: 10/18/2024 10:53 AM IV In situ: Peripheral General Information and Staff: Service Provider: Tom Portillo MD COMMERCIAL CREDIT LEAD: SAUL Estrada Placed By: SAUL Estrada Checklist: Patient Identified, IV Checked, Risks and Benefits Discussed, Surgical Consent, Monitors and Equipment Checked, Pre-op Evaluation and Timeout Performed Fire Risk Assessment Score: 0 Epidural: Patient Position: Sitting Prep: Chlorhexidine and Isopropyl Alcohol, Patient Draped and Maximum Sterile Barriers Used Monitoring: Heart Rate, Monitor, Blood Pressure and Continuous Pulse Ox Oxygen Source: Room Air Approach: Midline Location: L3-L4 Injection Technique: NICK w/PFNS Injection Method: Catheter Secured with: Transparent Dressing and Taped Dressing Type: Tape Local Infiltration: Lidocaine 1% Dose: 3 mL Needle and Epidural Catheter: Needle Type: Tuohy Needle Gauge: 17 G Needle Length: 9 cm OR NICK: 5.5 Catheter Type: Side Hole Catheter Size: 20 G Catheter at Skin Depth: 11.5 cm Number of Attempts: 1 Test Dose: Negative and Lidocaine 1.5% with Epinephrine 1:200,000 Dose: 3 mL Date and Time Given: 10/18/2024 10:53 AM Patient Tolerance: Tolerated Well Injection Assessment: Negative Aspiration for Blood, No Paresthesia on Injection, Negative CSF flow and Negative for S/S of Intravenous or Intrathecal Injection us Tom Portillo MD ANESTHESIA ORDERABLES Final Resu lt * PM EPIDURAL (10/18/2024 6:24 AM EDT) Lukas Cornejo APRN-CRNA - 10/18/2024 6:24 AM EDT SAUL Tai 10/18/2024 6:25 AM Procedure: Epidural Block Patient Location: OB Start Time: 10/18/2024 6:03 AM End Time: 10/18/2024 6:11 AM IV In situ: Peripheral General Information and Staff: Service Provider: David Naidu MD COMMERCIAL CREDIT LEAD: SAUL Tai Placed By: SAUL Tai Checklist: Patient Identified, IV Checked, Risks and Benefits Discussed, Surgical Consent, Monitors and Equipment Checked, Pre-op Evaluation and Timeout Performed Fire Risk Assessment Score: 0 Epidural: Patient Position: Sitting Prep: Chlorhexidine, Patient Draped and Maximum Sterile Barriers Used Monitoring: Heart Rate, Continuous Pulse Ox, Monitor and Blood Pressure Oxygen Source: Room Air Approach: Midline Location: L4-L5 Injection Technique: NICK w/Air Injection Method: Catheter Secured with: Transparent Dressing and Taped Dressing Type: Transparent and Tape Local Infiltration: Lidocaine 1% Dose: 3 mL Needle and Epidural Catheter: Needle Type: Tuohy Flushed with PFNS 5 mL Needle Gauge: 18 G Needle Length: 9 cm OR NICK: 6 Catheter Type: Side Hole Catheter Size: 20 G Catheter at Skin Depth: 12 cm Number of Attempts: 1 Test Dose: Negative and Lidocaine 1.5% with Epinephrine 1:200,000 Dose: 5 mL Date and Time Given: 10/18/2024 6:11 AM Patient Tolerance: Tolerated Well Assessment: Sensory Level: T10 Injection Assessment: Negative Aspiration for Blood, No Paresthesia on Injection, Negative CSF flow and Negative for S/S of Intravenous or Intrathecal Injection us David Naidu MD ANESTHESIA ORDERABLES Final Re sult documented in this encounter Visit Diagnoses Not on filedocumented in this encounter Administered Medications Inactive Administered Medications - up to 3 most recent administrations Medication Order MAR Action Action Date Dose Rate Site fentaNYL (PF) 2 mcg/mL - bupivacaine 0.1% [...] Given 10/18/2024 6:19 AM EDT 10 mL documented in this encounter Additional Health Concerns Assessment Noted Time PHQ-9 Depression Total Score: 0 03/05/20 24 1:19 PM EDT A Body Mass Index follow-up plan has been documented for the patient 04/03/2023 2:36 PM EST documented as of this encounter Care Teams Radiotelephone Operator Relationship Specialty Start Date End Date Emily Martinez APRN-[place] [address] [place] [address] PCP - General Family Medicine 08/28/18 documented as of this encounter
--- OUTSIDE RECORDS SUMMARY | 2024-10-20 10:40 | XMS_ITS | Encounter Summary ---
Author [id number] [address] [place] [address] Care Team Providers Care Electric Meter Installer Name Role Phone Emily Martinez APRN-RAIL CAR DRIVER Primary Care Provide r Reason for Visit * Reason Onset Date Comments Med Refill 09/28/2021 Encounter Details Date Type Department Care Team (Late st Contact Info) Description 09/28/2021 Refill [facility] [address] [place] [phone] Emily Martinez APRN-CNP [address] [place], [place] [id number] Allergic reaction to bee sting Social History Tobacco Use Types Packs/Day Years [...] week 01/28/2021 How often do you attend [facility] or mosque services? More than 4 times per year [...] care, and heating? Not hard at all 01/28/2021 PHQ-2 Answer Date Recorded Total Score 0 01/28/2021 [facility] Occupat ional Health - Occupational Stress [...] medical appointments or from getting medications? No 01/04 In the past 12 months, has l ack of transportation kept you from meetings, work, or from getting things needed for daily living? No 01/28/2021 Childcare Answer Date Recorded Do problems getting child ca re make it difficult for you to work or study? No 01/28/2021 Employment Answer Date Recorded Do you need help finding a [facility] career center and/or a training program? No 01/28/2021 Purpose - Life Answer Date Recorded I [...] on file documented as of this encounter Plan of Treatment Upcoming Encounters Date Type Department Care Team (Late st Contact Info) Description 11/16/2024 1:30 PM EDT Office Visit [facility] [address] [phone] Emily Martinez APRN-CNP [address] [place], [place] [phone] 11/29/2024 10:15 AM EDT Visit [facility] [address] [facility] [address] [address] [place] [address] Pati Ward MD [address] [facility] [place] [address] documented as of this encounter Visit Diagnoses Diagnosis Allergic reaction to bee sting documented in this encounter Additional Health Concerns Assessment Noted Time PHQ-9 Depression Total Score: 0 01/29/20 21 9:48 PM EDT A Body Mass Index follow-up plan has been documented for the patient 04/11/2021 2:25 PM EST documented as of this encounter Care Teams Electric Meter Installer Relationship Specialty Start Date End Date Emily Martinez APRN-RAIL CAR DRIVER [address] [place], [place] [phone] PCP - General Family Medicine 08/28/18 documented as of this encounter
--- OUTSIDE RECORDS SUMMARY | 2024-10-20 10:41 | XMS_ITS | Encounter Summary ---
Author Organization [employer] [facility] tem Address [id number] [address] [place] [address] Care Team Providers Care Woodwork Salvage Inspector Name Role Phone Emily Martinez APRN-COAGULATION OPERATOR Primary Care Provide r Encounter Details Date Type Department Care Team (Late st Contact Info) Description 03/30/2024 Orders Only [facility] [address] [place] [address] Pati Ward MD [address] [facility] [facility] [place] [address] Social History Tobacco Use Types Packs/Day Years [...] often do you attend chur ch or evangelical services? More than 4 times per year [...] Answer Date Recorded Total Score 0 03/05/2024 [facility] of Occupat ional Health - Occupational Stress [...] Recorded Do you need help finding a [facility] career center and/or a training program? [...] Office Visit [facility] [address] [place] [phone] Emily Martinez, WILLIAM-COAGULATION OPERATOR [address] [place], [place] [phone] 11/29/2024 10:15 AM EDT Visit [facility] [address] [place] [address] Pati Ward MD [address] [facility] [facility] [address] [place] [address] documented as of this encounter Procedures Procedure Name Priority Date/Time Associated Diagnosis Comments FREE CELL DNA (NON-[facility]) Routine 03/30/2024 2:23 PM EST documented in this encounter Results * Free Cell DNA (03/30/2024 2:23 PM EST) us Pati Ward MD LAB BLOOD ORDERABLES Edited R esult - Final MANUALLY TRANSCRIBED RESULTS documented in this encounter Visit Diagnoses Not on filedocumented in this encounter Additional Health Concerns Assessment Noted Time PHQ-9 Depression Total Score: 0 03/05/20 24 1:19 PM EDT A Body Mass Index follow-up plan has been documented for the patient 04/03/2023 2:36 PM EST documented as of this encounter Care Teams Woodwork Salvage Inspector Relationship Specialty Start Date End Date Emily Martinez, WILLIAM-COAGULATION OPERATOR [address] [place] [address] PCP - General Family Medicine 08/28/18 documented as of this encounter
--- OUTSIDE RECORDS SUMMARY | 2024-10-20 10:41 | XMS_ITS | Encounter Summary ---
Author Organization [facility] Address [facility] [id number] [address] [place] [address] Care Team Providers Care Salvage Supervisor Name Role Phone Emliy Martinez APRN-BACTERIOLOGY PROFESSOR Primary Care Provide r Encounter Details Date Type Department Care Team (Late st Contact Info) Description 06/13/2022 Orders Only [facility] [address] [place] [address] Destiney Crocker CMA Trigeminal neuralgia of left side of face Social History Tobacco Use Types Packs/Day Years [...] often do you attend chur ch or presybeterian services? More than 4 times per year 01/28/2021 Do you belong to any clubs o r organizations such as nondenominational groups, unions, fraternal or athletic groups, or [...] Answer Date Recorded Total Score 0 01/28/2021 [facility] of Occupat ional Health - Occupational [...] Recorded Do you need help finding a [place] career center and/or a training program? No [...] on file Sexual Orientation Not on file COVID-19 Exposure Response Date Recorded In the last month, have you been in contact with someone who was confirmed or suspected to have Coronavirus / COVID-19? No / Unsure 06/11/2022 2:46 PM EST documented as of this encounter Plan of Treatment Upcoming Encounters Date Type Department Care Team (Late st Contact Info) Description 11/16/2024 1:30 PM EDT Office Visit [facility] [address] [place] [address] Emily Martinez APRN-CNP [address] [place], [place] [phone] 11/29/2024 10:15 AM EDT Visit [facility] [address] [facility] [address] [place] [address] Pati Ward MD [address] [facility] [place] [address] documented as of this encounter Procedures Procedure Name Priority Date/Time Associated Diagnosis Comments ERYTHROCYTE SEDIMENTATION RATE (ESR) Routine 06/11/2022 Trigeminal neuralgia of left side of face CBC WITH AUTO DIFFERENTIAL Routine 06/11/2022 Trigeminal neuralgia of left side of face C-REACTIVE PROTEIN Routine 06/11/2022 Trigeminal neuralgia of left side of face documented in this encounter Results * C-reactive protein (06/11/2022) 06/11/2022 Emily ALVARADOBACTERIOLOGY PROFESSOR LAB BLOOD ORDERABLES Final Result SUNQUEST * Erythrocyte Sedimentation Rate (ESR) (06/11/2022) 06/11/2022 Emily ESPARZA LAB BLOOD ORDERABLES Final Result Performing Organization Address [facility] de Phone Number SUNQUEST * CBC auto differential (06/11/2022) 06/11/2022 Emily Martinez APRN-BACTERIOLOGY PROFESSOR LAB BLOOD ORDERABLES Final Result Performing Organization Address [facility] de Phone Number SUNQUEST documented in this encounter Visit Diagnoses Diagnosis Trigeminal neuralgia of left side of face documented in this encounter Additional Health Concerns Assessment Noted Time PHQ-9 Depression Total Score: 0 01/29/20 21 9:48 PM EDT A Body Mass Index follow-up plan has been documented for the patient 01/30/2022 2:05 PM EDT documented as of this encounter Care Teams Salvage Supervisor Relationship Specialty Start Date End Date Emily Martinez APRN-CNP [address] [place] [address] PCP - General Family Medicine 08/28/18 documented as of this encounter
--- OUTSIDE RECORDS SUMMARY | 2024-10-20 10:41 | XMS_ITS | Encounter Summary ---
Author Organization [id number] [address] [place] [address] Care Team Providers Care Director Underwriter Sales Name Role Phone Emily Martinez MOLD FILLER PLASTIC DOLLS-GPS NAVIGATION INSTALLER Primary Care Provide r Encounter Details Date Type Department Care Team (Late st Contact Info) Description 04/05/2024 Orders Only [facility] Ob[facility]Gynecology [address] [place] [address] [address] [place] [address] Ref Prov, [place] [address] Social History Tobacco Use Types Packs/Day Years [...] often do you attend chur ch or synagogue services? More than 4 times per year 01/28/2021 Do you belong to any clubs o r organizations such as mormon groups, unions, fraternal or athletic groups, or [...] Answer Date Recorded Total Score 0 03/05/2024 [facility] of Occupat ional Health - Occupational [...] Recorded Do you need help finding a [facility] career center and/or a training program? No [...] Office Visit [facility] [address] [place] [phone] Emily Martinez, MOLD FILLER PLASTIC DOLLS-[facility] [address] [place], [place] [phone] 11/29/2024 10:15 AM EDT Visit [facility] Ob[facility]Gynecology [address] [place] [address] [address] [place] [address] Pati Ward MD [address] [facility], [facility] [address] [place] [address] documented as of this encounter Procedures Procedure Name Priority Date/Time Associated Diagnosis Comments CARRIER STUDY NON-[facility] Routine 04/05/2024 10:52 AM EST documented in this encounter Results * Carrier Study Non-[facility] (04/05/2024 10:52 AM EST) Impressions MANUALLY TRANSCRIBED RESULTS - 04/05/2024 10:52 AM EST NEGATIVE FOR 4/4 DISEASES. us Not In System Ref Prov LAB BLOOD ORDERABLES Edit ed Result - Final MANUALLY TRANSCRIBED RESULTS documented in this encounter Visit Diagnoses Not on filedocumented in this encounter Additional Health Concerns Assessment Noted Time PHQ-9 Depression Total Score: 0 03/05/20 24 1:19 PM EDT A Body Mass Index follow-up plan has been documented for the patient 04/03/2023 2:36 PM EST documented as of this encounter Care Teams Director Underwriter Sales Relationship Specialty Start Date End Date Emily Martinez APRN-[place]USTIN [address] [place] [address] PCP - General Family Medicine 08/28/18 documented as of this encounter
--- OUTSIDE RECORDS SUMMARY | 2024-10-20 10:41 | XMS_ITS | Clinical Summary ---
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 4 each 1 4 Active vit,hzjn35-dnyo -folic 29 mg iron- 1 mg tablet Take 1 tablet by mouth in the morning. 90 tablet 11 4 Active omeprazole (PriLOSEC) 20 mg capsule Take 1 capsule (20 mg total) by mouth as needed. Active acetaminophen (TYLENOL EXTRA STRENGTH) 500 mg tablet Take 2 tablets (1,000 mg total) by mouth every 8 (eight) hours as needed for pain. 30 tablet 5 Active docusate sodium (COLACE) 100 mg capsule Take 1 capsule (100 mg total) by mouth in the morning and 1 capsule (100 mg total) before bedtime. 10 capsule Active ibuprofen (MOTRIN) 800 mg tablet Take 1 tablet (800 mg total) by mouth every 8 (eight) hours as needed (cramping). 30 tablet Active Active Problems Problem Noted Date Diagnosed Date Normal labor 10/18/2024 Rh negative state in antepartum period Supervision of normal first , antepartu m 04/21/2024 Gastroesophageal reflux disease 12/17/2022 Diarrhea 12/17/2022 Allergic reaction to bee sting 08/28/2018 Resolved Problems Problem Noted Date Diagnosed Date Resolved Date Depression 08/28/2018 02/11/2023 Encounters Date Type Department Care Team Description 10/19/2024 Telephone [facility] Ob[facility]/Gynecolo gy [address] [facility] [address] [place] [address] Gustavo Katz RMA Needs work note 10/18/2024 5:54 AM EDT Anesthesia Event [facility] [address] [place] [address] Tom Portillo MD Maiden, Timothy B, APRN-MEDICAL INTERN 10/18/2024 4:37 AM EDT - 10/19/2024 3:30 PM EDT Hospital Encounter [facility] - GEN 4 [address] [place] [address] Chelsi Farmer MD Discharge Disposition: Home 10/18/2024 Travel 10/12/2024 12:15 PM EDT Routine [facility] Obst[facility]/Gynecolo gy [address] [place] [address] Pati Ward MD GA: 39w5d 10/11/2024 Travel 10/08/2024 3:00 PM EDT Routine [facility] Obst[facility]/Gynecolo gy [address] [place] [address] Pati Ward MD GA: 39w1d 10/07/2024 Travel 09/29/2024 9:15 AM EDT Routine [facility] Obstetrics/Gynecolo gy [address] [address] [place] [address] Pati Ward MD GA: 37w6d 09/27/2024 Travel 09/20/2024 3:30 PM EDT Routine [facility] Obstetrics/Gynecolo gy [address] [place] [address] [place] [address] Pati Ward MD GA: 36w4d 09/20/2024 Travel 09/16/2024 3:15 PM EDT Routine [facility] Obstetrics/Gynecolo gy [address] [place] [address] [place] [address] Pati Ward MD GA: 36w0d 09/15/2024 Travel 09/02/2024 9:45 AM EDT Routine [facility] Obstetrics/Gynecolo gy [address] [place] [address] Pati Ward MD GA: 34w0d 08/31/2024 Travel 08/19/2024 8:45 AM EDT Routine [facility] Obst[facility]s/Gynecolo gy [address] [place] [address] Pati Ward MD GA: 32w0d 08/17/2024 Travel 08/13/2024 Documentation [facility] Obstetrics/Gynecolo gy [address] [address] [place] [address] Alisia Boyer MD 08/03/2024 3:30 PM EDT Routine [facility] Obstetrics/Gynecolo gy [address] [place] [place] [address] Pati Ward MD GA: 29w5d 08/03/2024 Orders Only [facility] Obstetrics/Gynecolo gy [address] [place] [address] [place] [id number] Tara Hitchcock Third trimester (Primary Dx) 08/03/2024 Travel 07/22/2024 3:30 PM EDT Routine [facility] Obstetrics/Gynecolo gy [address] [facility] [address] [place] [id number] Pallavi Freire, DRYCLEANER-CNM GA: 28w0d 07/20/2024 Travel from Last 3 Months Immunizations Immunization Administration Dates Next Due COVID-19, mRNA, LNP-S, PF, 100mcg/0.5mL Dose 01/14/2021 DTaP 08/03/2004, 1,04/29/2000,02/25,1999 HPV Quadrivalent 04/23/2012,12/09/2011, 2 Hepatitis A 2017,11/06/2016 Hepatitis B 04/29/2000,1999,1999 HiB 12/30/2000, 0,02/26/2000,12/20 IPV 08/03/2004, 1,04/29/2000,04/29,02/26/2000,1999 Influenza, Injectable, Mdck, Preservative Free, Quad 01/24/2020 Influenza, Injectable, Quadrivalent 02/01/2019 Influenza, Injectable, quadr ivalent (PF) 01/22/2021 MMR 12/30/2000,2000 Meningococcal Conjugate 11/06/2016 TST - PPD Lorna Test 02/01/2019 Tdap 07/22/2024,09/09/2011 Varicella 02/01/2019,2000 Family History Medical History Relation Name Comments No Known Problems Father Diabetes Maternal Aunt Diabetes Maternal Grandfather Diabetes Maternal Grandmother DM I Pulmonary fibrosis Maternal Grandmother Diabetes Mother DM I Miscarriages / Stillbirths Mother S AB x2 Polycystic ovary syndrome Mother Hypothyroidism Paternal Grandfather Pulmonary fibrosis Paternal Grandfather No Known Problems Paternal Grandmother Polycystic ovary syndrome Sister Relation Name Status Comments Father Alive Maternal Aunt Alive Maternal Grandfather Maternal Grandmother Mother Alive Paternal Grandfather Alive Paternal Grandmother Alive Sister Alive Social History Tobacco Use Types Packs/Day Years Used Date Smoking Tobacco: Never Smokeless Tobacco: Never Tobacco Cessation:Counseling Given: Not Answered Alcohol Use Standard Drinks/Week Comments Not Currently [...] often do you attend chur ch or worship services? More than 4 times per year 01/28/2021 Do you belong to any clubs o r organizations such as buddhist groups, unions, fraternal or athletic groups, or [...] Answer Date Recorded Total Score 0 03/05/2024 [facility] of Occupat ional Health - Occupational Stress [...] on file Sexual Orientation Not on file Last Filed Vital Signs Vital Sign Reading [...] Mass Index 26.43 10/18/2024 4:48 AM EDT Plan of Treatment Upcoming Encounters Date Type Department Care Team (Late st Contact Info) Description 11/16/2024 1:30 PM EDT Office Visit [facility] [address] [place] [phone] Emily Martinez APRN-AUSTIN [address] [place], [place] [phone] 11/29/2024 10:15 AM EDT Visit [facility] Obstetrics/Gynecology [address] [facility] [address] [place] [address] Pati Ward MD [address] [facility] [place] [address] Health Maintenance Due Date Last Done Comments COVID-19 Vaccine (3 2023-2 5 season) 2024 02/11/2021, 01/14/2021 Adult BMI Follow Up Plan 04/03/2024 04/03/2023 Influenza Vaccine 01/03/2025 01/22/2021, , 02/01/2019 Depression Screening 03/05/2025 03/05/2024 Adult BMI Screening 10/18/2025 10/18/2024 Tobacco Screening 10/19/2025 10/19/2024 Pap Smear 01/29/2027 01/30/2024, 10/27/2020 DTaP,Tdap and Td Vaccines (8 - Td or Tdap) 07/22/2034 07/22/2024, 09/09/2011, 08/03/2004, Additional history exists Medical Devices Not on file Procedures Procedure Name Priority Date/Time Associated Diagnosis Comments ANESTHESIA EPIDURAL BLOCK Routine 10/18/2024 12:09 PM EDT FENTANYL, URINE QUALITATIVE STAT 10/18/2024 9:12 AM EDT DRUG SCREEN, URINE STAT 10/18/2024 9: 12 AM EDT ANESTHESIA EPIDURAL BLOCK Routine 10/18/2024 6:24 AM EDT TYPE AND SCREEN STAT 10/18/2024 5:49 AM EDT RHOGAM NOT ELIGIBLE Routine 10/18/2024 5 :49 AM EDT HEMOGLOBIN AND HEMATOCRIT, BLOOD STAT 10/18/2024 5:49 AM EDT SYPHILIS TOTAL(UNKNOWN SYPHILIS STATUS) Routine 10/18/2024 5:49 AM EDT POCT NITRAZINE TEST (IP) Routine 10/18/2024 5:25 AM EDT STREP B SCREEN Routine 09/16/2024 3:51 PM EDT Third trimester US PREG TRANSABD FU PER FETU Routine 09/02/2024 9:20 AM EDT Third trimester PAP SMEAR Routine 01/30/2024 6:55 AM EDT Well woman exam with routine gynecological exam from Last 3 Months or Most Recently Relevant to Health Maintenance Results * PM EPIDURAL (10/18/2024 12:09 PM EDT) Narrative Deepak Jason APRN-CRNA - 10/18/2024 12:09 PM EDT SAUL Estrada 10/18/2024 12:09 PM Procedure: Epidural Block Patient Location: OB Start Time: 10/18/2024 10:45 AM End Time: 10/18/2024 10:53 AM IV In situ: Peripheral General Information and Staff: Service Provider: Tom Portillo MD MEDICAL INTERN: SAUL Estrada Placed By: SAUL Estrada Checklist: [...] for S/S of Intravenous or Intrathecal Injection Tom Portillo MD ANESTHESIA ORDERABLES Final Resu lt * Fentanyl, Urine Qualitative (10/18/2024 9:12 AM EDT) FENTANYL, URINE QUAL. Negative Negative 10/18/2024 10:06 AM EDT [facility] Urine Urine specimen collection, clean catch / Unknown 10/18/2024 9:12 AM EDT 10/18/2024 9:37 AM EDT Narrative [facility] - 10/18/2024 10:06 AM EDT Fentanyl screening cutoff = 5ng/ml This report is intended for use in clinical monitoring or management of patients. Patricia Hidalgo DRYCLEANER-CNM URINE ORDERABLES Final Result [facility] [address] [place] [address], [place] [phone] * Drug Screen, Urine (10/18/2024 9:12 AM EDT) AMPHETAMINE/METHAMP Negative Negative 10/18 10:07 AM EDT [facility] Comment:AMPH/METH screening cut off = 1000 ng/mL COCAINE METABOLITE Negative Negative 2024 10:07 AM EDT [facility] Comment:Cocaine screening cu t off value = 300 ng/mL ECSTASY Negative Negative 10/18/2024 10:07 AM EDT [facility] Comment:Ecstasy screening cu t off value = 500 ng/mL METHADONE Negative Negative 10/18/2024 10:07 AM EDT [facility] Comment:Methadone screening cut off value = 300 ng/mL. OPIATES Negative Negative 10/18/2024 10:07 AM EDT [facility] Comment: Opiates screening cut off value = 300 ng/mL This test is used for the detection of codeine, hydrocodone (>1000 ng/mL), morphine and hydromorphone (>900 ng/mL) in urine. OXYCODONE Negative Negative 10/18/2024 10:07 AM EDT [facility] Comment: Oxycodone screening cut off value = 300 ng/mL This test is used for the detection of oxycodone and oxymorphone in urine. PHENCYCLIDINE Negative Negative 10/18/2024 10:07 AM EDT [facility] Comment:Phencyclidine screen ing cut off value = 25 ng/mL CANNABINOIDS Negative Negative 10/18/2024 10:07 AM EDT [facility] Comment:Cannabinoids/THC scr eening cut off value = 50 ng/mL Urine Barbiturates Negative Negative 2024 10:07 AM EDT [facility] Comment:Barbiturates screeni ng cut off value = 200 ng/mL BENZODIAZEPINES Negative Negative 10:07 AM EDT [facility] Comment:Benzodiazepines scre ening cut off value = 200 ng/mL Urine Urine specimen collection, clean catch / Unknown 10/18/2024 9:12 AM EDT 10/18/2024 9:37 AM EDT us Patricia Hidalgo DRYCLEANER-CNM URINE ORDERABLES Final Result [facility] [address] [place] [address], [place] [phone] * PM EPIDURAL (10/18/2024 6:24 AM EDT) Narrative Lukas Pacheco APRN-CRNA - 10/18/2024 6:24 AM EDT SAUL Tai 10/18/2024 6:25 AM Procedure: Epidural Block Patient Location: OB Start Time: 10/18/2024 6:03 AM End Time: 10/18/2024 6:11 AM IV In situ: Peripheral General Information and Staff: Service Provider: David Naidu MD MEDICAL INTERN: SAUL Tai Placed By: SAUL Tai Checklist: [...] Naidu MD ANESTHESIA ORDERABLES Final Re sult * Rhogam Not Eligible (10/18/2024 5:49 AM EDT) [id number] Not eligible for RhoGAM 10/18/2024 4:05 PM EDT [facility] Blood Venous blood / Unknown Venipuncture / Unknown 10/18/2024 5:49 AM EDT 10/18/2024 5:49 AM EDT Patricia Hidalgo DRYCLEANER-[facility] LAB ORDERABLES Final R esult Performing Organization Address City/[facility]/ZIP Co de Phone Number [facility] DACIA JOSEPH [address] [place] [address], [facility] [address] [place] [address], [place] * Syphilis Total (Unknown Syphilis Status) (10/18/2024 5:49 AM EDT) SYPHILIS TOTAL <0.2 <=0.8 AI 10/18/2024 1:32 PM EDT [facility] Blood Venous blood / Unknown Venipuncture / Unknown 10/18/2024 5:49 AM EDT 10/18/2024 5:49 AM EDT Narrative [facility] - 10/18/2024 1:32 PM EDT NON REACTIVE No serologic evidence of infection to Treponema pallidum. Repeat testing may be considered in patients with suspected acute or primary syphilis in 2 to 4 weeks. Patricia Hidalgo DRYCLEANER-[facility] LAB BLOOD ORDERABLES Fi nal Result Performing Organization Address City/[facility] Co de Phone Number [facility] [address] [place] [address], * Hemoglobin and hematocrit, blood (10/18/2024 5:49 AM EDT) Hemoglobin 13.4 11.7 - 15.5 g/dL 10/18/2024 6:28 AM EDT [facility] Hematocrit 40.0 35 - 47 % 10/18/2024 6:28 AM EDT [facility] Blood Venous blood / Unknown Venipuncture / Unknown 10/18/2024 5:49 AM EDT 10/18/2024 5:49 AM EDT Patriciaira Hidalgo DRYCLEANER-CN LAB BLOOD ORDERABLES Fi nal Result Performing Organization Address City/[facility]/ZIP Co de Phone Number [facility] [address] [place] [address], * Type and screen(includes indirect juan) (10/18/2024 5:49 AM EDT) ABO O 10/18/2024 7:30 AM EDT [facility] RH Negative 10/18/2024 7:30 AM EDT [facility] Antibody Screen Negative 10/18/2024 7:30 AM EDT [facility] Blood Venous blood / Unknown Venipuncture / Unknown 10/18/2024 5:49 AM EDT 10/18/2024 5:49 AM EDT Patricia Hidalgo DRYCLEANER-CN BLOOD BANK TEST ORDERAB LES Edited Result - Final Performing Organization Address [facility] Co de Phone Number [facility] [address] [place] [address], [facility] [address] [place] [address], [place] * POCT Nitrazine Test (10/18/2024 5:25 AM EDT) Swab 10/18/2024 5:25 AM EDT Patricia Hidalgo DRYCLEANER-CNM POINT OF CARE TEST ORDE RABLES Final Result * Strep B screen (09/16/2024 3:51 PM EDT) CULTURE RESULTS NEGATIVE FOR GROUP B STREPTOCOCCUS BY NUCLEIC ACID AMPLIFICATION 09/17/2024 10:45 PM EDT [facility] Swab (Vagina/Rectum) 09/16/2024 3:51 PM EDT 09/16/2024 3:51 PM EDT Pati Ward MD MICROBIOLOGY - GENERAL ORDERA BLES Final Result [facility] [address] [place] [address], [place] [phone] * US PREG TRANSABD FU PER FETU (09/02/2024 9:20 AM EDT) Anatomical Region Laterality Modality AMB Ultrasound Study [place] Study Date Study JOSE MANUEL Working JOSE MANUEL (Source) 33w1d 09/02/2024 2024 10/14/2024 (Last Menstrua l Period) Fetus A Measurements Value GA (days) CRL Sac Diameter Narrative 09/03/2024 1:07 PM EDT Vertex. 18.1%ile. Normal fluid. movement, tone and breathing seen. BPP=12/10 us Pati Ward MD IMG US ORDERABLES Final Resul t * Pap Smear (01/30/2024 6:55 AM EDT) 01/30/2024 6:55 AM EDT 01/30/2024 6:56 AM EDT Narrative [facility] - 02/22/2024 10:50 AM EDT [facility] [address] [place] [address] Gynecologic Cytology Consultation Patient Name:RC RODRIGUEZ:2000 (Age: 23)Gender:FTaken:4Reported:4Physician(s):Pati Ward M.D. ([phone])Copy To: Rec. #:[id number]: #[id number] Final Cytologic Interpretation ThinPrep Pap Test (Cervical): Satisfactory for evaluation. A transformazion zone component is not identified via imaging-assisted review, using [employer] Thin Prep Imaging System, within 22 microscopic ryan of view. NEGATIVE FOR INTRAEPITHELIAL LESION OR MALIGNANCY. 02/22/2024 Interpretation performed at [facility], [address] [place] [address], License number: [id number]. Electronically Signed Out By ANTONIO Monroe (ASCP) Date of Last Menstrual Period: (None Given) Other Clinical Conditions: Z01.419 Health Sciences Manager exam wo/abn findings Source of Specimen ThinPrep Pap Test (Cervical) Thin Prep Pap (AXLE TURNER) Fee Code(s): G0145 The Pap test is a screening test with an inherent, but low, probability of error. The Pap test is primarily effective for the diagnosis and prevention of squamous cell carcinoma. Regular screening is critical for prevention. ThinPrep liquid-based slides, which meet the Biofuels Manager criteria for automated screening, have been screened by the ThinPrep Imaging System (as of 01/19/07) along with an additional manual rescreening by a frog catcher and, if indicated, by a pathologist. Pati Ward MD PATHOLOGY/CYTOLOGY ORDERABLES Final Result [facility] from Last 3 Months or Most Recently Relevant to Health Maintenance Insurance [employer] Advance Directives * Full Code (Latest Code Status on File) Date Activated Date Inactivated Comments 10/18/2024 5:24 AM 10/19/2024 5:51 PM Care Teams Compressor Operator Adjuster Relationship Specialty Start Date End Date Emily Martinez APRN-BULL FLOAT FINISHER [address] [place] [address] PCP - General Family Medicine 08/28/18
--- OUTSIDE RECORDS SUMMARY | 2024-10-20 10:41 | XMS_ITS | Encounter Summary ---
Author Organization [facility] [employer] [facility] tem Address [id number] [address] [place] [address] Care Team Providers Care Mercury Cell Cleaner Name Role Phone Emily Martinez APRN-DEPILATORY PAINTER Primary Care Provide r Encounter Details Date Type Department Care Team (Late st Contact Info) Description 07/16/2023 Orders Only [facility] [address] [place] [address] Destiney Crocker, MACO Other migraine without status migrainosus, not intractable Social History Tobacco Use Types Packs/Day Years [...] often do you attend chur ch or sikh services? More than 4 times per year 01/28/2021 Do you belong to any clubs o r organizations such as amish groups, unions, fraternal or athletic groups, or [...] Answer Date Recorded Total Score 0 01/28/2021 [facility] Occupat ional Health - Occupational [...] Recorded Do you need help finding a [facility] and/or a training program? No 01/28/2021 Hunger Screening Answer Date Recorded Within the past 12 months we worried whether our food would run out before we got money to buy more. Never True 12/17/2022 Within the past 12 months th e food we bought just didn't last and we didn't have money to get more. Never True 12/17/2022 Purpose - Life Answer Date Recorded I [...] Office Visit [facility] [address] [place] [phone] Emily Martinez APRN-CNP [address] [place], [place] [phone] 11/29/2024 10:15 AM EDT Visit [facility] Obstetrics/Gynecology [address] [facility] [address] [place] [address] Pati Ward MD [address] [facility] [place] [address] documented as of this encounter Procedures Procedure Name Priority Date/Time Associated Diagnosis Comments AMB REFERRAL TO NEUROLOGY Routine 07/16/2023 8:50 AM EDT Other migraine without status migrainosus, not intractable documented in this encounter Results * Ambulatory referral to Neurology ([facility]) (07/16/2023 8:50 AM EDT) us Emily Martinez CONVENIENCE STORE MANAGER-DEPILATORY PAINTER OUTPATIENT REFERRAL O RDERABLES Final Result MANUALLY TRANSCRIBED RESULTS documented in this encounter Visit Diagnoses Diagnosis Other migraine without status migrainosus, not intractable documented in this encounter Additional Health Concerns Assessment Noted Time PHQ-9 Depression Total Score: 0 01/29/20 21 9:48 PM EDT A Body Mass Index follow-up plan has been documented for the patient 04/03/2023 2:36 PM EST documented as of this encounter Care Teams Mercury Cell Cleaner Relationship Specialty Start Date End Date Emily Martinez APRN-AUSTIN [address] [place] [address] PCP - General Family Medicine 08/28/18 documented as of this encounter
--- OUTSIDE RECORDS SUMMARY | 2024-10-20 10:41 | XMS_ITS | Encounter Summary ---
Author Organization [facility] Sys tem Address [place]-[id number] [place] [address] Care Team Providers Care Clinical Rehabilitation Coordinator Name Role Phone Emily Martinez Primary Care Provide r Encounter Details Date Type Department Care Team (Late st Contact Info) Description 02/12/2021 Orders Only [facility] [address] [place] [address] Emily Martinez APRN-CNP [address] [place], [place] [phone] Elevated liver enzymes (Primary Dx) Social History Tobacco Use Types Packs/Day Years [...] How often do you attend chur or methodist services? More than 4 times per year 01/28/2021 Do you belong to any clubs o r organizations such as presybeterian groups, unions, fraternal or athletic groups, or [...] Answer Date Recorded Total Score 0 01/28/2021 [facility] of Occupat ional Health - Occupational [...] Recorded Do you need help finding a [facility] career center and/or a training program? [...] have Coronavirus / COVID-19? No / Unsure 02/10/2021 10:36 AM EDT documented as of this encounter Plan of Treatment Upcoming Encounters Date Type Department Care Team (Late st Contact Info) Description 11/16/2024 1:30 PM EDT Office Visit [facility] [address] [place] [address] Emily Martinez APRN-JEWEL INSPECTOR [address] [place] [address] 11/29/2024 10:15 AM EDT Visit [facility] [address] [facility] [address] [place] [address] Pati Ward MD [address] [facility], [facility] [address] [place] [address] documented as of this encounter Visit Diagnoses Diagnosis Elevated liver enzymes- Primary Other nonspecific abnormal serum enzyme levels documented in this encounter Additional Health Concerns Assessment Noted Time PHQ-9 Depression Total Score: 0 01/29/20 21 9:48 PM EDT A Body Mass Index follow-up plan has been documented for the patient 01/29/2021 1:24 PM EDT documented as of this encounter Care Teams Clinical Rehabilitation Coordinator Relationship Specialty Start Date End Date Emily Martinez APRN-CNP [address] [place] [address] PCP - General Family Medicine 08/28/18 documented as of this encounter
--- OUTSIDE RECORDS SUMMARY | 2024-10-20 10:41 | XMS_ITS | Encounter Summary ---
Author Organization [employer] s tem Address [facility] [id number] [address] [place] [address] Care Team Providers Care Appraisal Coordinator Name Role Phone Emily Martinez ELECTRIC POWER MACHINE OPERATOR-GARDEN CONSULTANT Primary Care Provide r Encounter Details Date Type Department Care Team (Latest Contact Info) Description 10/07/2024 Travel Social History Tobacco Use Types Packs/Day Years [...] often do you attend chur ch or anglican services? More than 4 times per year 01/28/2021 Do you belong to any clubs o r organizations such as samaritan groups, unions, fraternal or athletic groups, or [...] Answer Date Recorded Total Score 0 03/05/2024 [facility] [place] of Occupat ional Health - Occupational Stress [...] Office Visit [facility] [address] [place] [phone] Emily Martinez APRN-GARDEN CONSULTANT [address] [facility] [place] [place] [address] 11/29/2024 10:15 AM EDT Visit [facility] [address] [facility] [address] [place] [address] Pati Ward MD [address] [facility], [facility] [address] [place] [address] documented as of this encounter Visit Diagnoses Not on filedocumented in this encounter Additional Health Concerns Assessment Noted Time PHQ-9 Depression Total Score: 0 03/05/20 24 1:19 PM EDT A Body Mass Index follow-up plan has been documented for the patient 04/03/2023 2:36 PM EST documented as of this encounter Care Teams Appraisal Coordinator Relationship Specialty Start Date End Date Emily Martinez APRN-GARDEN CONSULTANT [address] [place] [address] PCP - General Family Medicine 08/28/18 documented as of this encounter
--- OUTSIDE RECORDS SUMMARY | 2024-10-20 10:41 | XMS_ITS | Encounter Summary ---
Author Organization [employer] s tem Address [facility] [place]-[id number] [address] [place] [address] Care Team Providers Care Chimney Supervisor Brick Name Role Phone Emily Martinez METAL SPRAYING MACHINE OPERATOR-NURSERY MANAGER Primary Care Provide r Encounter Details Date Type Department Care Team (Latest Contact Info) Description 10/11/2024 Travel Social History Tobacco Use Types Packs/Day [...] often do you attend chur ch or jewish services? More than 4 times per year 01/28/2021 Do you belong to any clubs o r organizations such as muslim groups, unions, fraternal or athletic groups, or [...] Answer Date Recorded Total Score 0 03/05/2024 [facility] [place] of Occupat ional Health - Occupational Stress [...] [facility] [address] [phone] Emily Martinez APRN-NURSERY MANAGER [address] [facility] [place] [address] 11/29/2024 10:15 AM EDT Visit [facility] [address] [facility] [address] [place] [address] Pati Ward MD [address] [facility], [facility] [address] [place] [address] documented as of this encounter Visit Diagnoses Not on filedocumented in this encounter Additional Health Concerns Assessment Noted Time PHQ-9 Depression Total Score: 0 03/05/20 24 1:19 PM EDT A Body Mass Index follow-up plan has been documented for the patient 04/03/2023 2:36 PM EST documented as of this encounter Care Teams Chimney Supervisor Brick Relationship Specialty Start Date End Date Emily Martinez APRN-NURSERY MANAGER [address] [place] [address] PCP - General Family Medicine 08/28/18 documented as of this encounter
--- OUTSIDE RECORDS SUMMARY | 2024-10-20 10:41 | XMS_ITS | Encounter Summary ---
Author [facility] Address [facility]-[id number] [address] [place] [address] Care Team Providers Care Electroencephalographic Technician Name Role Phone Emily Martinez JERKER-BEDSPREAD SEAMER Primary Care Provide r Reason for Visit * Reason Onset Date Comments Needs work note 10/19/2024 Encounter Details Date Type Department Care Team (Late st Contact Info) Description 10/19/2024 [facility] [address] [place] [address] Gustavo Katz RMA Needs work note Social History Tobacco Use Types Packs/Day Years [...] any clubs o r organizations such as catholic groups, unions, fraternal or athletic groups, or [...] Answer Date Recorded Total Score 0 03/05/2024 [facility] [place] of Occupat ional Health - Occupational Stress [...] Recorded Do you need help finding a [facility] career center and/or a training program? [...] on file documented as of this encounter Miscellaneous Notes * Telephone Encounter - KIERSTEN Couch - 10/19/2024 1:14 PM EDT Pt calls today as she delivered via vaginal delivery w/o complications. 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 Please advise. * Telephone Encounter - ARDEN Adrian - 10/19/2024 1:14 PM EDT OK to put note in pt chart for her with requested restrictions. * Telephone Encounter - KIERSTEN Couch - 10/19/2024 1:14 PM EDT LMOVM letting pt know she can print the RTW note. documented in this encounter Plan of Treatment Upcoming Encounters Date Type Department Care Team (Late st Contact Info) Description 11/16/2024 1:30 PM EDT Office Visit [facility] [address] [place] [phone] Emily Martinez APRN-CNP [address] [place], [place] [phone] 11/29/2024 10:15 AM EDT Visit [facility] [address] [facility] [address] [place] [address] Pati Ward MD [address] [facility], [place] [address] [place] [address] documented as of this encounter Visit Diagnoses Not on filedocumented in this encounter Additional Health Concerns Assessment Noted Time PHQ-9 Depression Total Score: 0 03/05/20 24 1:19 PM EDT A Body Mass Index follow-up plan has been documented for the patient 04/03/2023 2:36 PM EST documented as of this encounter Care Teams Electroencephalographic Technician Relationship Specialty Start Date End Date Emily Martinez APRN-CNP [address] [facility] [place] [address] PCP - General Family Medicine 08/28/18 documented as of this encounter
--- OUTSIDE RECORDS SUMMARY | 2024-10-20 10:41 | XMS_ITS | Encounter Summary ---
Author Organization [employer] s tem Address [facility]-[id number] [address] [place] [address] Care Team Providers Care Rn Clinical Documentation Specialist Name Role Phone Emily Martinez FORGING ROLL OPERATOR-PARTY PLAN DEMONSTRATOR Primary Care Provide r Encounter Details Date Type Department Care Team (Latest Contact Info) Description 10/18/2024 Travel Social History Tobacco Use Types Packs/Day [...] often do you attend chur ch or judaism services? More than 4 times per year 01/28/2021 Do you belong to any clubs o r organizations such as adventism groups, unions, fraternal or athletic groups, or [...] Answer Date Recorded Total Score 0 03/05/2024 [facility] [place] of Occupat ional Health - Occupational Stress [...] Functional Status documented as of this encounter Plan of Treatment Upcoming Encounters Date Type Department Care Team (Late st Contact Info) Description 11/16/2024 1:30 PM EDT Office Visit [facility] [address] [place] [address] Emily Martinez APRN-CNP [address] [place] [address] 11/29/2024 10:15 AM EDT Visit [facility] [address] [facility] [address] [place] [address] Pati Ward MD [address] [facility], [facility] [address] [place] [phone] documented as of this encounter Visit Diagnoses Not on filedocumented in this encounter Additional Health Concerns Assessment Noted Time PHQ-9 Depression Total Score: 0 03/05/20 24 1:19 PM EDT A Body Mass Index follow-up plan has been documented for the patient 04/03/2023 2:36 PM EST documented as of this encounter Care Teams Rn Clinical Documentation Specialist Relationship Specialty Start Date End Date Emily Martinez APRN-CNP [address] [facility] [place] [address] PCP - General Family Medicine 08/28/18 documented as of this encounter
--- OUTSIDE RECORDS SUMMARY | 2024-10-20 10:41 | XMS_ITS ---
Author Organization [employer] [facility] tem Address [facility] [place][id number] [address] [place] [address] Care Team Providers Care Speech Language Therapist Name Role Phone Emily Martinez PHOTOGEOLOGIST-TUBE SIZER AND CUTTER OPERATOR Primary Care Provide r Transitional Care Management Status:Closed (Closed) Start date:10/19/2024 Enrollment date:10/19/2024 End date:2024 Close reason:Does not meet criteria Continued Care and Services Coordination
--- OUTSIDE RECORDS SUMMARY | 2024-10-20 10:41 | XMS_ITS | Encounter Summary ---
Author Organization [facility] Address [facility][id number] [address] [place] [address] Care Team Providers Care Arabic Professor Name Role Phone Emily Martinez APRN-[place] Primary Care Provide r Reason for Visit * Reason Comments Med Refill Encounter Details Date Type Department Care Team (Late st Contact Info) Description 06/26/2023 Refill [facility] [address] [place] [address] Emily Martinez APRN-CNP [address] [place], [place] [phone] Social History Tobacco Use Types Packs/Day Years [...] often do you attend chur ch or adventist services? More than 4 times per year 01/28/2021 Do you belong to any clubs o r organizations such as judaism groups, unions, fraternal or athletic groups, or [...] Answer Date Recorded Total Score 0 01/28/2021 [facility] of Occupat ional Health - Occupational [...] Recorded Do you need help finding a [facility] [place] career center and/or a training program? No [...] Office Visit [facility] [address] [place] [phone] Emily Martinez APRN-STEAM GENERATING POWERPLANT MECHANIC [address] [place] [address] 11/29/2024 10:15 AM EDT Visit [facility] [address] [facility] [address] [place] [address] Pati Ward MD [address] [facility], [facility] [address] [place] [address] documented as of this encounter Visit Diagnoses Not on filedocumented in this encounter Additional Health Concerns Assessment Noted Time PHQ-9 Depression Total Score: 0 01/29/20 21 9:48 PM EDT A Body Mass Index follow-up plan has been documented for the patient 04/03/2023 2:36 PM EST documented as of this encounter Care Teams Arabic Professor Relationship Specialty Start Date End Date Emily Martinez APRN-CNP [address] [place], [place] [phone] PCP - General Family Medicine 08/28/18 documented as of this encounter
--- OUTSIDE RECORDS SUMMARY | 2024-10-20 10:41 | XMS_ITS | Clinical Summary ---
Author Organization [facility] Address [address] [place] [address] Care Team Providers Care Cytology Teacher Name Role Phone Juan Emily THOMAS - MEDICAL OFFICE WORKER Primary Care Provi adilson Allergies Active Allergy Reactions Criticality Noted Date Comments Bee Venom Anaphylaxis High 10/13/2022 Penicillins 10/13/2022 Medications cetirizine (ZYRTEC) 10 MG tablet Take by mouth daily Active montelukast (SINGULAIR) 10 MG tablet Take 1 tablet by mouth nightly Active Multiple Vitamins-Minera ls (THERAPEUTIC MULTIVITAMIN-GA NERALS) tablet Take 1 tablet by mouth daily Active famotidine (PEPCID) 20 MG tablet Take 1 tablet by mouth 2 times daily for 15 days 30 tablet 10/13/2022 Active sucralfate (CARAFATE) 1 GM tablet Take 1 tablet by mouth 4 times daily 120 tablet 3 10/13/2022 Active hyoscyamine (LEVSIN) 125 MCG tablet Take 1 tablet by mouth every 4 hours as needed for Cramping 30 tablet 3 10/13/2022 Active Social History Tobacco Use Types Packs/Day Years Used Date Smoking Tobacco: Never Smokeless Tobacco: Never Tobacco Cessation:Counseling Given: Not Answered Alcohol Use Standard Drinks/Week Comments Not Currently 0 (1 standard drink = 0.6 oz pur e alcohol) AUDIT-C Answer Date Recorded Q1: How often do you have a drink containing alcohol? Never 10/13/2022 Q2: How many drinks containi ng alcohol do you have on a typical day when you are drinking? Patient does not drink Q3: How often do you have si x or more drinks on one occasion? Never 10/13/2022 Comments No Sex and Gender Information Value Date Recorded Sex Assigned at Not on file Legal Sex Female 8:51 PM EDT Gender Identity Not on file Sexual Orientation Not on file Last Filed Vital Signs Vital Sign Reading Time Taken Comments Blood Pressure 136/92 10/13/2022 8:58 PM EDT Pulse 110 10/13/2022 8:58 PM EDT Temperature 36.4 C (97.5 F) 10/13/2022 8:58 PM EDT Respiratory Rate 17 10/13/2022 8:58 PM EDT Oxygen Saturation 100% 10/13/2022 8:58 PM EDT Inhaled Oxygen Concentration - - Weight 68 kg (150 lb) 10/13/2022 8:58 PM EDT Height 162.6 cm (5' 4 ) 10/13/2022 8:58 PM EDT Body Mass Index 25.75 10/13/2022 8:58 PM EDT Plan of Treatment Health Maintenance Due Date Last Done Comments DTaP/Tdap/Td vaccine (7 - Td or Tdap) 09/08/2021 09/09/2011, 08/03/2004, 12/30/2000, Additional history exists COVID-19 Vaccine (2 - 2023-2 5 season) 2024 01/14/2021 Flu vaccine (Season Ended) 12/03/202401/22, 01/24/2020, 02/01/2019 Polio vaccine Completed 08/03/2004, 12/04, 04/29/2000, Additional history exists Insurance [employer] Care Teams Cytology Teacher Relationship Specialty Start Date End Date Emily Martinez APRN - MEDICAL OFFICE WORKER PCP - General Pediatric Rehabilitation 10/13/22
== END 2024-10-20 14:33 | disposition home or self-care (01) ==
PROVIDERS: Visit Provider Obstetrics & Gynecology
DX: Z39.1 Encounter for care and examination of lactating mother (principal)